=== PATIENT | female | born 1950 | race Caucasian/White ===

== ENCOUNTER 2021-03-01 15:35 | Outpatient (REF) | payer MEDICARE, SELFPAY ==
--- NOTE | ~2021-03-01 | MM_ITS ---
EXAMINATION: MM SCREENING DIGITAL BREAST TOMOSYNTHESIS, BILATERAL CLINICAL INFORMATION: Screening. Asymptomatic. The lifetime risk of breast cancer based on the Tyrer-Cuzick Model is 5%. COMPARISON: Mammography: 12/03/2019, 07/20/2018, 06/19/2017 TECHNIQUE: Digital breast tomosynthesis is performed in both the craniocaudal and mediolateral oblique views along with computer-aided detection (CAD). Synthesized 2D images are generated from the tomosynthesis. Additional right MLO view is provided. FINDINGS: There are scattered areas of fibroglandular density (ACR BI-RADS breast composition Category b). There are no significant masses, abnormal calcifications, or other abnormalities. Again, there are scattered bilateral vascular and ductal secretory and some rim calcifications. Small dermal lesion overlies posterior left axilla. There are no significant changes. MM/MM tomosynthesis screening BI IMPRESSION: No mammographic evidence of malignancy. ASSESSMENT: BI-RADS 2: Benign RECOMMENDATION: Routine annual mammography screening. This patient's information was entered into a reminder system with a target due date for their next mammogram.
== END 2021-03-01 15:36 | disposition home or self-care (01) ==
LOC: HO.MAMMO 15:35
PROVIDERS: PCP Internal Medicine; Visit Provider Internal Medicine
DX: Z12.31 Encounter for screening mammogram for malignant neoplasm of breast (principal)
CPT/HCPCS: 77063; 77067

== ENCOUNTER 2021-04-19 13:57 | Outpatient (REF) | payer MEDICARE, SELFPAY ==
--- NOTE | ~2021-04-19 | MM_ITS ---
EXAMINATION: BONE DENSITOMETRY CLINICAL INDICATION: Encounter for screening for osteoporosis. COMPARISON: Previous BD dated 05/25/2015 and baseline BD dated 06/04/2012. TECHNIQUE: Using a [employer] DXA System (software version: 13.1) manufactured by [employer], dual-energy x-ray absorptiometry was performed of the lumbar spine and left hip. The images are of good technical quality. Summary results are attached. FINDINGS: AP SPINE L1-L2 (excluding L3 and L4): The data of L1-L4 has been changed to exclude the L3 and L4 vertebral bodies, because degenerative changes at these levels may cause overestimation of lumbar spine density. Current: BMD 1.033 g/cm2, Z-score -0.6, T-score -1.1, osteopenia, 7.7% increase from previous, 10.2% increase from baseline (<5% change is not significant). Prior: BMD 0.959 g/cm2. Baseline: BMD 0.937 g/cm2. LEFT FEMUR, NECK: Current: BMD 0.854 g/cm2, Z-score -0.3, T-score -1.3, osteopenia. Prior: BMD 0.817 g/cm2. Baseline: BMD 0.768 g/cm2. LEFT FEMUR, TOTAL: Current: BMD 0.885 g/cm2, Z-score -0.2, T-score -1.0, normal, 5.4% increase from previous, 12.6% increase from baseline (<5% change is not significant). Prior: BMD 0.840 g/cm2. Baseline: BMD 0.786 g/cm2. IDENTIFIED RISK FACTORS: Height loss, menopause, hysterectomy, bilateral oophorectomy. HISTORY OF FRACTURE: None listed. MEDICATIONS: Calcium supplements or multivitamin, vitamin D. MM/XR DEXA axial skeleton IMPRESSION: 1. DIAGNOSIS: Osteopenia based on the lowest T-score value of -1.3 in the femoral neck applying World Health Organization criteria. 2. 10-YEAR FRACTURE RISK PREDICTION, FRAX: Major osteoporotic fracture (clinical spine, forearm, hip or shoulder) 9.3%. Hip fracture 1.4%. 3. Treatment Recommendations: NOF guidelines recommend consideration for treatment in postmenopausal women and men age 50 and older presenting with the following: -A hip or vertebral (clinical or morphometric) fracture. -T-score less than or equal to -2.5 at the femoral neck or spine after appropriate evaluation to exclude secondary causes. -Low bone mass at the hip or spine and a 10-year fracture probability by FRAX of greater than or equal to 3% for hip fracture or greater than or equal to 20% for major osteoporotic fracture based on the [place] adapted WHO algorithm. 4. Other Recommendations: All treatment decisions require clinical judgment and consideration of individual patient factors, including patient preferences, comorbidities, previous drug use, risk factors not captured in the FRAX model (e.g. frailty, falls, vitamin D deficiency, increased bone turnover, interval significant decline in bone density) and possible under or overestimation of fracture risk by FRAX. Additional medical evaluation for secondary cause of low bone mineral density may be appropriate. FUTURE SCAN RECOMMENDATION: People with diagnosed cases of osteoporosis or at high risk for fracture should have regular bone mineral density tests. For patients eligible for Medicare, routine testing is allowed once every 2 years. The testing frequency can be increased to one year for patients who have rapidly progressing disease, those who are receiving or discontinuing medical therapy to restore bone mass, or have additional risk factors.
== END 2021-04-19 13:58 | disposition home or self-care (01) ==
LOC: HO.MAMMO 13:57
PROVIDERS: Visit Provider Internal Medicine
DX: Z13.820 Encounter for screening for osteoporosis (principal); Z78.0 Asymptomatic menopausal state; Z90.710 Acquired absence of both cervix and uterus; Z90.722 Acquired absence of ovaries, bilateral
CPT/HCPCS: 77080

== ENCOUNTER 2022-03-11 11:07 | Outpatient (REF) | payer MEDICARE, SELFPAY ==
--- NOTE | ~2022-03-11 | MM_ITS ---
EXAMINATION: MM SCREENING DIGITAL BREAST TOMOSYNTHESIS, BILATERAL CLINICAL INFORMATION: Screening. Asymptomatic. The lifetime risk of breast cancer based on the Tyrer-Cuzick Model is 3.9%. COMPARISON: Mammography: March 01, 2021 and studies dating back to April 28, 2014 TECHNIQUE: Digital breast tomosynthesis is performed in both the craniocaudal and mediolateral oblique views along with computer-aided detection (CAD). Synthesized 2D images are generated from the tomosynthesis. FINDINGS: The breasts are heterogeneously dense, which may obscure small masses (ACR BI-RADS breast composition Category c). There are no significant masses, abnormal calcifications, or other abnormalities. MM/MM tomosynthesis screening BI IMPRESSION: No significant changes ASSESSMENT: BI-RADS 1: Negative RECOMMENDATION: Routine annual mammography screening. This patient's information was entered into a reminder system with a target due date for their next mammogram.
== END 2022-03-11 11:08 | disposition home or self-care (01) ==
LOC: HO.MAMMO 11:07
PROVIDERS: PCP Internal Medicine; Visit Provider Internal Medicine
DX: Z12.31 Encounter for screening mammogram for malignant neoplasm of breast (principal)
CPT/HCPCS: 77063; 77067

== ENCOUNTER 2023-03-21 10:47 | Outpatient (REF) | payer MEDICARE, SELFPAY ==
--- NOTE | ~2023-03-21 | MM_ITS ---
EXAMINATION: MM SCREENING DIGITAL BREAST TOMOSYNTHESIS, BILATERAL CLINICAL INFORMATION: Screening. Asymptomatic. COMPARISON: Mammography: This study is compared with prior exams dating back to 2017. TECHNIQUE: Digital breast tomosynthesis is performed in both the craniocaudal and mediolateral oblique views along with computer-aided detection (CAD). Synthesized 2D images are generated from the tomosynthesis. FINDINGS: There are scattered areas of fibroglandular density (ACR BI-RADS breast composition Category b). There are no significant masses, abnormal calcifications, or other abnormalities. There are bilateral, benign secretory calcifications in each breast. MM/MM tomosynthesis screening BI IMPRESSION: No mammographic evidence of malignancy. ASSESSMENT: BI-RADS BI-RADS 2 - Benign Findings RECOMMENDATION: Routine annual mammography screening. 1 year F/U This examination should not preclude the clinical evaluation of a suspicious palpable abnormality. This patient's information was entered into a reminder system with a target due date for their next mammogram.
== END 2023-03-21 10:48 | disposition home or self-care (01) ==
LOC: HO.MAMMO 10:47
PROVIDERS: PCP Internal Medicine; Visit Provider Internal Medicine
DX: Z12.31 Encounter for screening mammogram for malignant neoplasm of breast (principal)
CPT/HCPCS: 77063; 77067

== ENCOUNTER → 2023-03-21 11:00 | Outpatient (BNV) | payer MEDICARE, SELFPAY | PROVIDERS: PCP Internal Medicine; Visit Provider Radiology Diagnostic Radiology | DX: Z12.31 Encounter for screening mammogram for malignant neoplasm of breast (principal) | CPT/HCPCS: 77063; 77067 ==

== ENCOUNTER 2023-07-31 10:56 | Outpatient (REF) | payer MEDICARE, SELFPAY ==
--- NOTE | ~2023-07-31 | MM_ITS ---
EXAMINATION: BONE DENSITOMETRY CLINICAL INDICATION: Menopausal disorder. COMPARISON: Previous BD dated 04/19/2021 and baseline BD dated 06/04/2012. TECHNIQUE: Using a [employer] DXA System (software version: 13.1) manufactured by [employer], dual-energy x-ray absorptiometry was performed of the lumbar spine and left hip. The images are of good technical quality. Summary results are attached. FINDINGS: LEFT FEMUR, NECK: Current: BMD 0.836 g/cm2, Z-score 0.0, T-score -1.5, osteopenia. Prior: BMD 0.854 g/cm2. Baseline: BMD 0.768 g/cm2. LEFT FEMUR, TOTAL: Current: BMD 0.852 g/cm2, Z-score 0.0, T-score -1.2, osteopenia, 3.7% decrease from previous, 8.4% increase from baseline (<5% change is not significant). Prior: BMD 0.885 g/cm2. Baseline: BMD 0.786 g/cm2. AP SPINE L1-L2 (excluding L3 and L4): The data of L1-L4 has been changed to exclude the L3 and L4 vertebral bodies, because degenerative sclerosis at these levels may cause overestimation of lumbar spine density. Current: BMD 0.947 g/cm2, Z-score -0.7, T-score -1.8, osteopenia, 8.3% decrease from previous, 1.1% increase from baseline (<5% change is not significant). Prior: BMD 1.033 g/cm2. Baseline: BMD 0.937 g/cm2. IDENTIFIED RISK FACTORS: Menopause, hysterectomy, bilateral oophorectomy, height loss. HISTORY OF FRACTURE: None listed. MEDICATIONS: Calcium supplements or multivitamin, vitamin D. MM/XR DEXA axial skeleton IMPRESSION: 1. DIAGNOSIS: Osteopenia based on the lowest T-score value of -1.8 in the lumbar spine applying World Health Organization criteria. 2. 10-YEAR FRACTURE RISK PREDICTION, FRAX: Major osteoporotic fracture (clinical spine, forearm, hip or shoulder) 10.7%. Hip fracture 2.1%. 3. Treatment Recommendations: NOF guidelines recommend consideration for treatment in postmenopausal women and men age 50 and older presenting with the following: -A hip or vertebral (clinical or morphometric) fracture. -T-score less than or equal to -2.5 at the femoral neck or spine after appropriate evaluation to exclude secondary causes. -Low bone mass at the hip or spine and a 10-year fracture probability by FRAX of greater than or equal to 3% for hip fracture or greater than or equal to 20% for major osteoporotic fracture based on the [place] adapted WHO algorithm. 4. Other Recommendations: All treatment decisions require clinical judgment and consideration of individual patient factors, including patient preferences, comorbidities, previous drug use, risk factors not captured in the FRAX model (e.g. frailty, falls, vitamin D deficiency, increased bone turnover, interval significant decline in bone density) and possible under or overestimation of fracture risk by FRAX. Additional medical evaluation for secondary cause of low bone mineral density may be appropriate. FUTURE SCAN RECOMMENDATION: People with diagnosed cases of osteoporosis or at high risk for fracture should have regular bone mineral density tests. For patients eligible for Medicare, routine testing is allowed once every 2 years. The testing frequency can be increased to one year for patients who have rapidly progressing disease, those who are receiving or discontinuing medical therapy to restore bone mass, or have additional risk factors.
== END 2023-07-31 10:57 | disposition home or self-care (01) ==
LOC: HO.MAMMO 10:56
PROVIDERS: PCP Internal Medicine; Visit Provider Internal Medicine
DX: Z13.820 Encounter for screening for osteoporosis (principal); Z78.0 Asymptomatic menopausal state
CPT/HCPCS: 77080

== ENCOUNTER 2023-11-10 15:12 | Emergency (ER) | payer MEDICARE, SELFPAY ==
--- NOTE | 2023-11-10 15:29 | ED.GENADULT ---
HPI - General Adult General Chief complaint: General Medical Stated complaint: swollen right knee, hands and toes tingling Time Seen by Provider: 11/10/23 18:01 Source: patient Mode of arrival: ambulatory Limitations: no limitations History of Present Illness HPI narrative: 73-year-old female with a past medical history of varicose veins and osteoarthritis presents to the emergency department with complaints of a swollen right knee and pain in her lower extremities. She reports she recently took a job where she is on her feet more and walking several flights of stairs per day. She reports when she gets home from work she is very uncomfortable and that her pain improves with rest and that after a night's sleep pain is resolved. She states she has been taking dwah-waw-[id number] medicines with moderate relief in symptoms. She is being followed by her primary care provider with an ultrasound completed in July which was negative for DVT. She states she was told she would need a right total knee replacement but is ?trying to hold off ?. She denies any erythema, warmth, lymphangitis, fever, saddle anesthesias, urinary or fecal incontinence , chills Pertinent positives and negatives discussed in HPI Related Data Previous Rx's ?Medication ?Instructions ?Recorded diclofenac sodium 1 % topical gel 2 g topical QID #100 grams 11/10/23 (Aleve (diclofenac)) naproxen 250 mg tablet 250 mg PO BID #60 tabs 11/10/23 Allergies Allergy/AdvReac Type Severity Reaction Status Date / Time cats Allergy Unknown Unknown Uncoded 11/10/23 15:32 Review of Systems Review of Systems: Yes all other systems are reviewed and are negative PMFSH Social History Social History Advance Directives: No Advance Directives Information Provided: No Do you have a plan to hurt others: No Plan Physical Exam ED Vital Signs: Vital Signs - 24 hr 11/10/23 15:30 11/10/23 18:07 11/10/23 18:42 Temperature 97.8 F 97.9 F 97.9 F Pulse Rate 69 70 70 Respiratory Rate 18 18 20 Blood Pressure 138/63 136/66 136/66 Pulse Oximetry 96 97 97 Oxygen Delivery Method Room Air Room Air Room Air BMI result Body Mass Index 30.7 Nursing notes and vital signs reviewed. GENERAL APPEARANCE: A&0 x 4, generally well appearing, no acute distress HENMT: Normal to inspection, atraumatic, face symmetrical. Normal external ears, nose, and oropharynx clear. EYE: PERRLA, EOM intact, structures appear normal NECK: Supple without stiffness or restricted ROM. HEART: Normal rate and regular rhythm, normal S1/S2, no M/R/G LUNGS: LS CTA, moving air well. Able to speak in complete sentences. No crackles, wheezes, or rhonchi auscultated BACK: No CVAT, no obvious deformity EXTREMITIES: Moving all extremities without difficulty. Swelling right knee. Normal capillary refill. NEUROLOGICAL: Alert and oriented, moving all 4 extremities with equal strength. CN not formally tested but appearing grossly intact. Observed to ambulate with normal gait. Cognition normal SKIN: Warm and dry without any lesions, rash, or visible sores Course Course Course Narrative: This is a Rapid Medical Exam performed in triage by Gunjan Lopez PA-C. Full HPI, ROS and PE to be performed by primary ED provider. 73 year-old F w/no sig PMHx presenting to the ED c/o toe numbness, swelling in B/L legs and R knee, joint pain x all year PE: ambulating w/steady gait, b/l LE with 1+ edema, NV intact Plan: labs, US ordered Medical Decision Making Medical Decision Making MDM Narrative: Old records reviewed for previous imaging, lab studies, ECGs, and notes. Patient was assessed the emergency department with no acute distress or toxicity noted. Blood work and ultrasound ordered and declined by patient. Patient's symptoms are consistent muscle strain with a low suspicion for infection. Patient educated to use an Jatin wrap on the right knee for compression and stability. Prescription for diclofenac ointment and naproxen sent to patient's preferred pharmacy for further management of pain. Patient educated to continue use of compression stockings and follow-up with the vascular specialist. Patient is safe for discharge at this time with plan for [id number] Tylenol and/or NSAID such as ibuprofen or naproxen for fever/discomfort with dosing as per packaging. HPI, PE, diagnostics, and plan discussed with patient and family with no unanswered questions at this time. Strict return precautions given to return to the emergency department with new, worsening, or concerning emergent symptoms. Recommended to follow-up with there primary care provider in 24-48 hours for further treatment and management. Differential Diagnosis Differential Diagnoses: The differential diagnosis associated with the presentation includes But not limited to fracture, dislocation, strain, sprain, contusion, effusion, septic joint, DVT, sepsis, malignancy Discharge Plan Discharge Clinical Impression: Acute pain of right knee Patient Disposition: Home, Self-Care Instructions: Acetaminophen (By mouth), Naproxen (By mouth), Arthralgia (ED), R.I.C.E. Treatment (ED), Heat Pack Application (ED) Additional Instructions: Your seen in the emergency department for concerns of chronic swelling in the right knee. It was recommended that you rest, compress, and elevate your knee for comfort. Applying heat to the knee may aid in comfort. Application of heat should be 20 minutes seems on and then 20 minutes off to avoid skin burn. Naproxen and an NSAID ointment called diclofenac essentially preferred pharmacy for further management. Please follow-up with your primary care provider in addition to your vascular specialist You are safe for discharge at this time with plan for management of fever or discomfort with [id number]-uxtpplo Tylenol and/or naproxen with dosing as per packaging. Please return to the emergency department with new, worsening, or concerning emergent symptoms. Recommended to follow-up with your primary care provider in 24-48 hours for further treatment and management. Thank you for choosing [facility]. Prescriptions: New diclofenac sodium [Aleve (diclofenac)] 1 % gel 2 g topical QID Qty: 100 0RF Rx Instructions: apply to single elbow, wrist or hand; for hand includes palm/fingers/back of hand naproxen 250 mg tablet 250 mg PO BID Qty: 60 0RF Referrals: [facility] [place] Family Medicine [Provider Group] [facility] [Provider Group] [facility] [place] [facility] [[facility]] Marielena Cano MD [Primary Care Provider] - Interventions: ED Discharge Assessment Last Done: 11/10/23 18:42 Discharge Date/Time: 11/10/23 18:46 Print Language: Sami
[2023-11-10 15:30] VITALS: BP 138/63; PULSE 69; RESP 18; TEMP 36.6; O2SAT 96; BMI 30.7
[2023-11-10 18:07] VITALS: BP 136/66; PULSE 70; RESP 18; TEMP 36.6; O2SAT 97
[2023-11-10 18:42] VITALS: BP 136/66; PULSE 70; RESP 20; TEMP 36.6; O2SAT 97
== END 2023-11-10 18:46 | disposition home or self-care (01) ==
PROVIDERS: Emergency Provider Emergency Medicine; PCP Internal Medicine
DX: M25.561 Pain in right knee (principal); R60.0 Localized edema
CPT/HCPCS: 99283

== ENCOUNTER 2023-11-15 22:38 | Emergency (ER) | payer MEDICARE, SELFPAY ==
--- NOTE | 2023-11-15 | ECG_ITS ---
Test Reason : CHEST PAIN Blood Pressure : / mmHG Vent. Rate : 063 BPM Atrial Rate : 063 BPM P-R Int : 158 ms QRS Dur : 096 ms QT Int : 412 ms P-R-T Axes : 056 040 021 degrees QTc Int : 421 ms Normal sinus rhythm Normal ECG When compared with ECG of 15-JUL-2019 09:44, No significant change was found Referred By: Generic ED Physician Electronically Signed By:RAHAT MANUEL MD
--- NOTE | ~2023-11-15 | XR_ITS ---
EXAMINATION: XR CHEST CLINICAL INFORMATION: Chest pain. COMPARISON: Chest x-ray July 15, 2019 TECHNIQUE: Frontal portable view of the chest was obtained. 11:11 PM FINDINGS: Lungs are clear. No pulmonary vascular congestion. There is no pleural effusion. The heart size is normal. The cardiac and mediastinal contours are normal. There are multilevel degenerative changes of dorsal spine. XR/XR chest 1V IMPRESSION: Unremarkable examination.
[2023-11-15 22:52] VITALS: BP 160/86; PULSE 67; O2SAT 98
[2023-11-15 23:03] VITALS: BP 176/75; PULSE 62; RESP 16; TEMP 36.6; O2SAT 97; BMI 31.0
--- NOTE | 2023-11-15 23:10 | MHC.EDTECH ---
Patient BIBA,changed into hospital attire,placed on the vehicle monitor technician ,vitals taken and EKG taken per order and signed by provider,call arellano in reach
--- NOTE | 2023-11-15 23:26 | MHC.EDTECH ---
Labs obtained and sent to lab
[2023-11-15 23:30] LABS: MANUAL DIFF FLAG NO
[2023-11-15 23:31] LABS: Basophils Percent Auto 0.5 % (0-2); Eosinophils Absolute Auto 0.1 X10*3/uL (0.0-0.4); Eosinophils Percent Auto 1.7 % (0-4); Hematocrit 36.6 % (37.0-47.0); Hemoglobin 12.7 g/dl (12.0-16.0); Imm Gran Abs Auto 0.02 X10*3/uL (0.00-0.03); Imm Gran Pct Auto 0.2 % (0.0-0.4); Lymphocytes Absolute Auto 1.7 X10*3/uL (1.2-4.9); Mean Corpuscular HGB Conc 34.7 g/dl (31.0-35.0); Mean Corpuscular Hemoglobin 33.1 pg (27.0-33.0); Mean Corpuscular Volume 95.3 fL (80.0-98.0); Mean Platelet Volume 10.5 fL (9.4-12.3); Monocytes Absolute Auto 0.6 X10*3/uL (0.1-1.2); Neutrophils Absolute Auto 5.9 x10*3/uL (2.0-8.3); Neutrophils Percent Auto 70.6 % (45-73); Platelet Count 247 X10*3/uL (160-400); Red Blood Count 3.84 X10*6/uL (4.20-5.50); Red Cell Distribution Width 12.8 % (11.0-16.0); White Blood Count 8.4 X10*3/uL (4.8-10.8)
[2023-11-15 23:39] VITALS: BP 156/76; PULSE 70; RESP 18; O2SAT 96
--- NOTE | 2023-11-15 23:40 | MHC.EDTECH ---
Patient ambulated to the bathroom with a steady gait.
[2023-11-15 23:46] LABS: Alanine Aminotransferase 20 U/L (0-31); Albumin Level 4.2 g/dL (3.5-5.0); Alkaline Phosphatase 63 U/L (39-117); Anion Gap 16 (12-20); Aspartate Amino Transferase 34 U/L (5-31); Bilirubin Total 0.3 mg/dL (0.0-1.0); Blood Urea Nitrogen 21 mg/dL (9-16); Calcium 9.7 mg/dL (8.4-10.2); Carbon Dioxide 25 mmol/L (22-29); Chloride 105 mmol/L (96-108); Creatinine Clr Calc Pharmacy 71.5; Estimated Glomerular Filt Rate > 60; Glucose Random 91 mg/dL (60-115); Potassium 4.3 mmol/L (3.3-5.1); Sodium 142 mmol/L (135-145)
[2023-11-15 23:52] LABS: B Type Natriuretic Peptide 42 pg/mL (<100)
--- NOTE | 2023-11-15 23:52 | ED_ITS ---
HPI - General Adult General Chief complaint: General Medical Stated complaint: sharp chest pain x10 mins, ROSARIO x3 Time Seen by Provider: 11/15/23 23:20 Source: patient Mode of arrival: ambulatory Limitations: no limitations History of Present Illness ED Provider: gracie HPI narrative: Patient's history of varicose veins, knee arthritis was seen here on 11/09 for pain comes here again with multiple complaints including right leg pain and chest pain in body a for last several days patient had left knee replacement for arthritis and supposed to get right knee also in future also had right hip replacement patient no recent fall patient had Doppler done last week which was negative Related Data Previous Rx's ?Medication ?Instructions ?Recorded diclofenac sodium 1 % topical gel 2 g topical QID #100 grams 11/10/23 (Aleve (diclofenac)) naproxen 250 mg tablet 250 mg PO BID #60 tabs 11/10/23 tramadol 50 mg tablet 50 mg PO Q6H PRN pain #20 tabs 11/16/23 Allergies Allergy/AdvReac Type Severity Reaction Status Date / Time cats Allergy Unknown Unknown Uncoded 11/15/23 23:04 Review of Systems 2 Review of Systems: Yes all other systems are reviewed and are negative [facility] Social History Social History Smoked in Last 30 Days: No Use of substances other than those prescribed or required for medical reasons: No Advance Directives: No Advance Directives Information Provided: No Physical Exam ED Vital Signs: Vital Signs - 24 hr 11/15/23 23:03 11/15/23 23:39 11/16/23 00:52 Temperature 97.9 F 97.6 F Pulse Rate 62 70 72 Respiratory Rate 16 18 18 Blood Pressure 176/75 H 156/76 H 166/75 H Pulse Oximetry 97 96 96 Oxygen Delivery Method Room Air Room Air Room Air BMI result Body Mass Index 31.0 Appearance: Alert. Oriented X3. No acute distress. Anxious Eyes: No pallor ENT: Pharynx normal. Oral Mucosa moist Neck: Normal inspection. Neck supple. CVS: Normal heart rate and rhythm. Pulses normal. Respiratory: No respiratory distress. Equal air entry bilateral, no wheezing/rales/rhonchi Abdomen: Soft and nontender. Bowel sounds are present, no mass palpable, no CVA tenderness Skin: Skin warm and dry. Normal skin color. Normal skin turgor. Extremities: No lower extremity edema. No calf tenderness varicose vein bilateral right knee diffuse swelling mild effusion good range of movement diffuse tenderness Neuro: Oriented X 3. No motor deficit. N Medications Administered Discontinued Medications Generic Name Dose Route Start Last Admin Trade Name Freq PRN Reason Stop Dose Admin Sodium Chloride 1,000 mls @ 999 mls/hr 11/16/23 01:30 11/16/23 01:34 Ns IV 11/16/23 02:30 999 mls/hr .Q1H1M ONE Administration Ondansetron HCl 4 mg 11/16/23 01:14 11/16/23 01:17 Ondansetron Odt 4 Mg Tab.Rapdis TRANSLINGU 11/16/23 01:15 4 mg ONCE ONE Administration Ondansetron HCl 4 mg 11/16/23 01:30 11/16/23 01:34 Ondansetron Hcl 4 Mg/2 Ml Vial IVPUSH 11/16/23 01:31 4 mg ONCE ONE Administration Tramadol HCl 50 mg 11/16/23 00:37 11/16/23 00:53 Tramadol Hcl 50 Mg Tablet PO 11/16/23 00:38 50 mg ONCE ONE Administration Medical Decision Making Medical Decision Making [facility] Narrative: Patient has osteoarthritis of the knee patient comes here with multiple complaints overwhelmed with the problems workup is negative patient advised to take pain medication follow-up with vascular and orthopedics Differential Diagnosis Differential Diagnoses: The differential diagnosis associated with the presentation includes Lab Data [facility] Lab Attestation statement: I reviewed the patient's lab results. 11/15/23 23:25 11/15/23 23:25 Labs: Lab Results 11/15/23 11/15/23 Range/Units 23:25 23:49 WBC 8.4 (4.8-10.8) X10*3/uL RBC 3.84 L (4.20-5.50) X10*6/uL Hgb 12.7 (12.0-16.0) g/dl Hct 36.6 L (37.0-47.0) % MCV 95.3 (80.0-98.0) fL MCH 33.1 H (27.0-33.0) pg MCHC 34.7 (31.0-35.0) g/dl RDW 12.8 (11.0-16.0) % Plt Count 247 (160-400) X10*3/uL MPV 10.5 (9.4-12.3) fL Immature Gran % (Auto) 0.2 (0.0-0.4) % Neut % (Auto) 70.6 (45-73) % Lymph % (Auto) 20.0 (20-40) % [place] % (Auto) 7.0 (2-11) % Eos % (Auto) 1.7 (0-4) % Baso % (Auto) 0.5 (0-2) % Lymph # (Auto) 1.7 (1.2-4.9) X10*3/uL [place] # (Auto) 0.6 (0.1-1.2) X10*3/uL Eos # (Auto) 0.1 (0.0-0.4) X10*3/uL Baso # (Auto) 0.0 (0.0-0.2) X10*3/uL Abs Immat Gran (auto) 0.02 (0.00-0.03) X10*3/uL Absolute Neuts (auto) 5.9 (2.0-8.3) x10*3/uL Absolute Nucleated RBC 0.000 (0.0-0.012) X10*3/uL Nucleated RBC % (auto) 0.0 (0.0-0.2) /100WBC PT 12.0 (11.1-13.3) SEC INR 1.0 (0.9-1.1) Sodium 142 (135-145) mmol/L Potassium 4.3 (3.3-5.1) mmol/L Chloride 105 (96-108) mmol/L Carbon Dioxide 25 (22-29) mmol/L Anion Gap 16 (12-20) BUN 21 H (9-16) mg/dL Creatinine 0.73 (0.5-1.4) mg/dL Estim Creat Clear Calc 71.5 Estimated GFR > 60 Random Glucose 91 (60-115) mg/dL Calcium 9.7 (8.4-10.2) mg/dL Total Bilirubin 0.3 (0.0-1.0) mg/dL AST 34 H (5-31) U/L ALT 20 (0-31) U/L Alkaline Phosphatase 63 (39-117) U/L Troponin I High Sens < 2.7 (<3.5-17.0) ng/L B-Natriuretic Peptide 42 (<100) pg/mL Total Protein 7.0 (6.5-8.0) g/dL Albumin 4.2 (3.5-5.0) g/dL Urine Color Yellow Urine Appearance Clear Urine pH 7.0 (5.0-9.0) Ur Specific [place] 1.010 (1.005-1.025) Urine Protein Negative (Neg-Trace) mg/dL Urine Glucose (UA) Negative (Negative) mg/dL Urine Ketones Negative (Negative) mg/dL Urine Blood Negative (Negative) Urine Nitrite Negative (Negative) Ur Leukocyte Esterase Moderate (2+) H (Negative) Urine RBC 0-2 (0-2) /HPF Urine WBC 0-5 (0-5) /HPF Ur Squamous Epith Cells 0-2 (0-2) /HPF Urine Bacteria None Seen (None Seen) Hyaline Casts 0-2 (0-2) /LPF Independent Interpretation I performed an independent interpretation of an: EKG Interpretation: Normal sinus rhythm heart rate 80 63 beats per minute normal interval normal axis no acute ST T wave changes Discharge Plan Discharge Clinical Impression: Chest pain, Knee pain, right, Varicose vein of leg Patient Disposition: Home, Self-Care Instructions: Chest Pain (ED), Knee Pain (ED), Venous Insufficiency (DC) Additional Instructions: Take pain medication as prescribed Follow up with vascular for varicose veins and orthopedics for right knee arthritis Follow with your PCP chest likely atypical non cardiac Prescriptions: New tramadol 50 mg tablet 50 mg PO Q6H PRN (Reason: pain) Qty: 20 0RF No Action diclofenac sodium [Aleve (diclofenac)] 1 % gel 2 g topical QID Qty: 100 0RF Rx Instructions: apply to single elbow, wrist or hand; for hand includes palm/fingers/back of hand naproxen 250 mg tablet 250 mg PO BID Qty: 60 0RF Print Language: [place]
[2023-11-15 23:59] LABS: Troponin-I High Sensitivity < 2.7 ng/L (<3.5-17.0)
[2023-11-16 00:04] LABS: Appearance Urine Clear; Color Urine Yellow; Glucose Urine UA Negative (Negative); Leukocyte Esterase Urine Moderate (2+) (Negative); Nitrite Urine Negative (Negative); UMIC TRIGGER UACC YES; Urine Blood Negative (Negative); Urine Ketones Negative (Negative); Urine Protein Negative (Neg-Trace)
[2023-11-16 00:14] LABS: Bacteria Urine None Seen (None Seen); Hyaline Casts Urine 0-2 /LPF (0-2); RBC Urine 0-2 /HPF (0-2); Squamous Epithelial Cell Urine 0-2 /HPF (0-2); WBC Urine 0-5 /HPF (0-5)
[2023-11-16 00:52] VITALS: BP 166/75; PULSE 72; RESP 18; TEMP 36.4; O2SAT 96
[2023-11-16] MEDS: traMADoL HCL 50 MG TABLET PO (00:53)
[2023-11-16] MEDS: Ondansetron ODT 4 MG TAB.RAPDIS TRANSLINGU (01:17)
[2023-11-16] MEDS: ondansetron HCL 4 MG/2 ML VIAL IVPUSH (01:34)
[2023-11-16] MEDS: 0.9 % Sodium Chloride 1,000 ML 999 ML IV (01:34)
[2023-11-16 05:57] VITALS: BP 117/63; PULSE 70; RESP 18; TEMP 36.4; O2SAT 95
[2023-11-16 06:05] VITALS: BP 117/63; PULSE 70; RESP 18; TEMP 36.4; O2SAT 95
== END 2023-11-16 06:18 | disposition home or self-care (01) ==
PROVIDERS: Physician Assistant; Emergency Provider Internal Medicine; PCP Internal Medicine
DX: R07.89 Other chest pain (principal); M25.561 Pain in right knee; R06.02 Shortness of breath; Z79.899 Other long term (current) drug therapy
CPT/HCPCS: 36415; 71045; 80053; 81001; 83880; 84484; 85025; 85610; 93005; 96365; 96375; 99284; 99285; J2405

== ENCOUNTER → 2023-11-15 22:50 | Outpatient (BNV) | payer MEDICARE, SELFPAY | PROVIDERS: Emergency Provider Internal Medicine; PCP Internal Medicine; Visit Provider Internal Medicine Cardiovascular Disease | DX: R07.9 Chest pain, unspecified (principal) | CPT/HCPCS: 93010 ==

== ENCOUNTER 2023-11-16 09:42 | Observation (INO) | payer MEDICARE, SELFPAY ==
--- NOTE | ~2023-11-16 | NM_ITS ---
EXAMINATION: NM BILIARY TRACT CLINICAL INFORMATION: Right upper quadrant pain. COMPARISON: None available. TECHNIQUE: 5 mCi of 90 9M technetium mebrofenin was injected and imaging over the right upper quadrant was obtained up to 1 hour. 1.7 mcg of CCK was injected and imaging was obtained for next 30 minutes. FINDINGS: There is normal hepatic uptake without focal defect. There is prompt visualization of CBD by 10 minutes and gallbladder by 24 minutes. Small bowel is visualized by 12 minutes. Post-CCK the gallbladder ejection fraction is 15% at 29 minutes. NM/NM hepatobiliary w pharm IMPRESSION: Abnormal gallbladder ejection fraction of 15% at 29 minutes. Patent cystic duct, patent CBD and normal hepatic uptake.
--- NOTE | ~2023-11-16 | CT_ITS ---
EXAMINATION: CT ABDOMEN AND PELVIS WITHOUT CONTRAST CLINICAL INFORMATION: Transaminitis with nausea and vomiting COMPARISON: Ultrasound abdomen 11/16/2023, CT abdomen pelvis 07/25/2019 TECHNIQUE: Multidetector volumetric imaging was performed from the superior aspect of the liver through the pubic symphysis. Sagittal and coronal reformatted images were obtained on the technologist's workstation. This CT examination was performed using dose optimization techniques as appropriate, variously including the following: *Automated exposure control *Adjustment of mA and/or kV according to patient size (this includes techniques or standardized protocols for targeted exams where dose is matched to indication/reason for exam; i.e. extremities or head) *Use of iterative reconstruction technique DLP: 508 mGy-cm FINDINGS: LUNG BASES: Some minimal emphysematous changes are seen along with some mild traction bronchiectasis. Bibasilar scarring is present. LIVER, GALLBLADDER, AND BILIARY TREE: The liver is normal in size, shape, and attenuation. No focal hepatic lesion or biliary ductal dilatation is present. The gallbladder is unremarkable with no evidence of radiopaque gallstones, gallbladder wall thickening, or obvious pericholecystic inflammatory changes. PANCREAS: Unremarkable. SPLEEN: Unremarkable. Small splenule is seen. ADRENAL GLANDS: There is a small subcentimeter nodular density seen in the region of the right adrenal gland measuring fat density which is not a worrisome finding and needs no follow-up. Adrenal glands are otherwise unremarkable. KIDNEYS AND URETERS: The kidneys are normal in size, shape, and attenuation. No hydronephrosis, hydroureter, or calculi seen. No perinephric stranding. Multiple benign left-sided parapelvic Bosniak class I renal cysts are noted a which require no additional imaging or follow-up. No solid renal masses are seen. BLADDER: Unremarkable. GASTROINTESTINAL TRACT: The small and large bowel are unremarkable. The appendix is unremarkable. ABDOMINAL WALL: No significant hernia is appreciated. LYMPH NODES: Normal. VASCULAR: Unremarkable. PELVIC VISCERA: The uterus is not seen. An abnormal adnexal mass is not detected. No free intraperitoneal fluid is present. There is an ovoid 2 cm calcification in the left lower quadrant that could represent an old calcified avulsed epiploic appendage, new from 2010. This is not a worrisome finding. OSSEOUS STRUCTURES: There is a biconvex thoracolumbar scoliosis seen with degenerative changes in the spine. There is a right total hip prosthesis. No bony destructive lesions. CT/CT abdomen pelvis wo IV con IMPRESSION: 1. A cause for the patient's transaminitis and nausea and vomiting has not been found. 2. Incidental note made of mild emphysematous changes in the lung bases, benign left renal cysts which need no further imaging or follow-up, hysterectomy and degenerative changes in the spine with right total hip prosthesis. Fleischner guidelines were followed.
--- NOTE | ~2023-11-16 | US_ITS ---
EXAMINATION: US ABDOMEN LIMITED liver and gallbladder only CLINICAL INFORMATION: Nausea vomiting. COMPARISON: None available. TECHNIQUE: Real-time imaging of the right upper quadrant abdominal viscera. FINDINGS: LIVER: Normal. The liver is normal in size. The liver contour is normal. Parenchymal echogenicity is normal. No focal hepatic lesion. There is no intrahepatic biliary duct dilatation seen. GALLBLADDER: There is echogenic material in the gallbladder probably gallbladder sludge. The gallbladder is physiologically distended without evidence of stones, polyps, wall thickening or pericholecystic fluid. COMMON BILE DUCT: Normal in caliber measuring 0.2 cm in diameter. FREE FLUID: None. US/US abdomen limited IMPRESSION: * Echogenic material in the gallbladder probably gallbladder sludge. * No ultrasound evidence of cholecystitis.
--- NOTE | ~2023-11-16 | XR_ITS ---
EXAMINATION: XR KNEE, RIGHT CLINICAL INFORMATION: Right knee pain COMPARISON: None available. TECHNIQUE: AP and lateral views of the right knee. FINDINGS: Joint space narrowing and osteophyte formation is seen within the femoral-tibial joint and patellofemoral joint consistent with moderate to severe osteoarthritis. Osseous structures are otherwise intact. No significant joint effusion. Generalized subcutaneous edema seen XR/XR knee RT 2V IMPRESSION: Moderate to severe osteoarthritis. Generalized soft tissue edema. No significant joint effusion
[2023-11-16 09:48] VITALS: BP 132/83; PULSE 68; O2SAT 96
[2023-11-16 09:56] VITALS: BP 114/50; PULSE 66; RESP 18; TEMP 36.6; O2SAT 95; BMI 32.0
--- NOTE | 2023-11-16 10:47 | ED_ITS ---
HPI - General Adult General Chief complaint: General Medical Stated complaint: NAUSEA,SEEN RECENTLY PER EMS Time Seen by Provider: 11/16/23 10:21 Source: patient Mode of arrival: ambulatory Limitations: no limitations History of Present Illness ED Provider: DR. Cheema HPI narrative: 73-year-old female who presented today after having nausea and vomiting last night, patient also is complaining of progressive generalized joint pain patient with history of varicose vein and osteoarthritis, patient was seen and evaluated 3 times this week, apparently patient appear depressed and stressed out, patient is tearful in the ED during the interview, no SI, no HI, no hallucinations,Patient feels unsafe being home alone. Patient has no abdominal pain, no nausea, no vomiting now. Patient had previous workup in the emergency department which all unremarkable with a normal. Patient could not be placed to rehab because health insurance issue a new health insurance will start on 11/17 2023. Related Data Previous Rx's ?Medication ?Instructions ?Recorded diclofenac sodium 1 % topical gel 2 g topical QID #100 grams 11/10/23 (Aleve (diclofenac)) naproxen 250 mg tablet 250 mg PO BID #60 tabs 11/10/23 tramadol 50 mg tablet 50 mg PO Q6H PRN pain #20 tabs 11/16/23 Allergies Allergy/AdvReac Type Severity Reaction Status Date / Time cats Allergy Unknown Unknown Uncoded 11/16/23 09:58 Review of Systems 2 Review of Systems: all other systems are reviewed and are negative Constitutional: Reports as per HPI and Reports no additional constitutional complaints Eyes: Reports as per HPI and Reports no additional eye complaints Reports system reviewed and no additional complaints, except as documented Cardiovascular: Reports as per HPI and Reports no additional cardiovascular complaints Respiratory: Reports as per HPI and Reports no additional respiratory complaints Gastrointestinal: Reports as per HPI and Reports no additional gastrointestinal complaints Genitourinary: Reports no additional female genitourinary complaints Musculoskeletal: Reports no additional musculoskeletal complaints Skin/Breast: Reports system reviewed and no additional complaints, except as docu Psychiatric: Reports no additional psychiatric complaints Endocrine: Reports no additional endocrine complaints Hematologic/Lymphatic: Reports no additional hematologic/lymphatic complaints Allergic/Immunologic: Reports no additional allergic/immunologic complaints Reports system reviewed and no additional complaints, except as documented and Reports Abnormal speech present [facility] Social History Social History Advance Directives: No Advance Directives Information Provided: No Physical Exam ED Vital Signs: Vital Signs - 24 hr 11/16/23 09:56 11/16/23 15:35 Temperature 97.9 F Pulse Rate 66 59 Respiratory Rate 18 17 Blood Pressure 114/50 L 114/52 L Pulse Oximetry 95 95 Oxygen Delivery Method Room Air Room Air BMI result Body Mass Index 32.0 Vital signs have been reviewed and appear to be correct. Blood pressure elevated. Heart rate normal. Respiratory rate normal. Temperature normal. Oxygen saturation normal. Appearance: Alert. Oriented X3. No acute distress. Head: Normal external exam. Normocephalic. Atraumatic. No Mckeon signs noted. No raccoon eyes noted Eyes: PERRLA. EOMI. Conjunctiva and sclera normal. Eyelids normal. ENT: TM's Normal. Pharynx normal. Uvula midline. Moist mucous membranes. No trismus noted. No drooling noted. No muffled voice noted. Neck: Normal inspection. Neck supple. FROM. No adenopathy. Thyroid Normal. No meningeal signs. No neck mass noted. CVS: Normal heart rate and rhythm. Heart sound normal. No murmurs noted. Pulses normal throughout. Respiratory: No respiratory distress. Painless inspiration. Breath sounds normal. No wheezes/rales/rhonchi noted. Chest nontender. No accessory muscle usage noted or decreased air movement noted. Abdomen: Soft and nontender. Bowel sounds normal in all 4 quadrants. No distention noted. No organomegaly noted. No visible injury noted. Back: No CVA tenderness. Full range of motion noted. Skin: Skin warm and dry. Normal skin color. Normal skin turgor. No rashes/lesions/lacerations noted. Extremities: No lower extremity edema. Extremities exhibit normal range of motion. Extremities nontender. Neuro: Oriented X 3. Cranial nerve exam: II-XII are grossly intact No motor deficit. No sensory deficit. Reflexes normal. Patient Orientation: Person, Place, Time and Situation, okay hygiene and grooming. Fair eye contact, tearful, attentive, no tics or tremors. Level of Consciousness: Awake, Appropriate and Alert Patient Behavior: Appropriate, Guarded, Cooperative and Anxious Mood Description: Constricted, Blunted and Apprehensive Affect Description: Constricted, Blunted and Apprehensive Patient Cognition Impaired: No Ability to Follow Directions: Excellent Speech Pattern: Clear, Appropriate and Spontaneous Speech, nonpressured, spontaneous with regular rate and rhythm, normal volume and prosody. No dysarthria. Memory Description: Intact, Immediate Intact and Short Term Intact Hallucinations: None Delusions: Not Present Thought Process: Intact Thought Content: positive for Intact, positive for Logical, denies Suicidal Ideation and denies Homicidal Ideation. Depressive Symptoms: Not present. Judgement and Insight: Limited but adequate. Course Reevaluation(s) Reevaluation #1: 73-year-old female multiple ED visits this week for evaluation of worsening diffuse joint pain likely secondary to osteoarthritis. Unremarkable labs today. New health insurance will be active on 11/17/2023 (tomorrow). Patient's symptoms consistent with depression no SI, no HI, no hallucination Will obtain care team consultation. Consider rehab placement and psychiatric social worker with PT evaluation. Time: 11:01 Reevaluation #2: a 73-year-old female who is here for nausea, vomiting and the brief abdominal pain found to have acute transaminitis of unclear etiology, CT of the abdomen and pelvis showing no hepatobiliary pathology, ultrasound of the abdomen also showing no acute pathology, patient currently have no abdominal pain, no jaundice will admit the patient to the medical floor for further workup for the acute transaminitis. Time: 15:55 Medical Decision Making Differential Diagnosis Differential Diagnoses: The differential diagnosis associated with the presentation includes ( Osteoarthritis, electrolyte derangement, dehydration, UTI, depression, SI, physical therapy and rehab, Transaminitis, hepatobiliary pathology.) Admission/Observation Consideration of admission/observation: Escalation of care including admission/observation considered Consult Healthcare Provider Management of the patient was discussed with: Hospitalist (Dr. Michele) Lab Data MDM Lab Attestation statement: I reviewed the patient's lab results. 11/16/23 11:18 11/16/23 11:18 Labs: Lab Results 11/16/23 Range/Units 11:18 WBC 11.1 H (4.8-10.8) X10*3/uL RBC 3.76 L (4.20-5.50) X10*6/uL Hgb 12.4 (12.0-16.0) g/dl Hct 36.4 L (37.0-47.0) % MCV 96.8 (80.0-98.0) fL MCH 33.0 (27.0-33.0) pg MCHC 34.1 (31.0-35.0) g/dl RDW 12.9 (11.0-16.0) % Plt Count 236 (160-400) X10*3/uL MPV 10.7 (9.4-12.3) fL Immature Gran % (Auto) 0.2 (0.0-0.4) % Neut % (Auto) 89.7 H (45-73) % Lymph % (Auto) 5.0 L (20-40) % [place] % (Auto) 4.8 (2-11) % Eos % (Auto) 0.0 (0-4) % Baso % (Auto) 0.3 (0-2) % Lymph # (Auto) 0.6 L (1.2-4.9) X10*3/uL [place] # (Auto) 0.5 (0.1-1.2) X10*3/uL Eos # (Auto) 0.0 (0.0-0.4) X10*3/uL Baso # (Auto) 0.0 (0.0-0.2) X10*3/uL Abs Immat Gran (auto) 0.02 (0.00-0.03) X10*3/uL Absolute Neuts (auto) 9.9 H (2.0-8.3) x10*3/uL Absolute Nucleated RBC 0.000 (0.0-0.012) X10*3/uL Nucleated RBC % (auto) 0.0 (0.0-0.2) /100WBC Sodium 142 (135-145) mmol/L Potassium 4.2 (3.3-5.1) mmol/L Chloride 108 (96-108) mmol/L Carbon Dioxide 24 (22-29) mmol/L Anion Gap 14 (12-20) BUN 18 H (9-16) mg/dL Creatinine 0.70 (0.5-1.4) mg/dL Estim Creat Clear Calc 75.7 Estimated GFR > 60 Random Glucose 116 H (60-115) mg/dL Calcium 9.8 (8.4-10.2) mg/dL Total Bilirubin 1.2 H (0.0-1.0) mg/dL Direct Bilirubin 0.6 H (0.0-0.5) mg/dL AST 895 H (5-31) U/L ALT 702 H (0-31) U/L Alkaline Phosphatase 104 (39-117) U/L Troponin I High Sens < 2.7 (<3.5-17.0) ng/L Total Protein 7.2 (6.5-8.0) g/dL Albumin 4.3 (3.5-5.0) g/dL Lipase 26 (8-78) U/L Independent Interpretation I performed an independent interpretation of an: Ultrasound ( Abdomen :* Echogenic material in the gallbladder probably gallbladder sludge. * No ultrasound evidence of cholecystitis. ) and CT Scan ( Abdomen pelvis:1. A cause for the patient's transaminitis and nausea and vomiting has not been found. 2. Incidental note made of mild emphysematous changes in the lung bases, benign left renal cysts which need no further imaging or follow-up, hysterectomy and degenerative changes in the spine wi) Radiology Impression Discussion of test interpretation with radiology: I have reviewed the radiologist's reading. Discharge Plan Discharge Clinical Impression: Osteoarthritis, Depression, Transaminitis Patient Disposition: Admitted As Inpatient Print Language: Luxembourgish
[2023-11-16 11:23] LABS: MANUAL DIFF FLAG NO
[2023-11-16 11:26] LABS: Basophils Percent Auto 0.3 % (0-2); Hematocrit 36.4 % (37.0-47.0); Hemoglobin 12.4 g/dl (12.0-16.0); Imm Gran Abs Auto 0.02 X10*3/uL (0.00-0.03); Imm Gran Pct Auto 0.2 % (0.0-0.4); Lymphocytes Absolute Auto 0.6 X10*3/uL (1.2-4.9); Mean Corpuscular HGB Conc 34.1 g/dl (31.0-35.0); Mean Corpuscular Volume 96.8 fL (80.0-98.0); Mean Platelet Volume 10.7 fL (9.4-12.3); Monocytes Absolute Auto 0.5 X10*3/uL (0.1-1.2); Monocytes Percent Auto 4.8 % (2-11); Neutrophils Absolute Auto 9.9 x10*3/uL (2.0-8.3); Neutrophils Percent Auto 89.7 % (45-73); Platelet Count 236 X10*3/uL (160-400); Red Blood Count 3.76 X10*6/uL (4.20-5.50); Red Cell Distribution Width 12.9 % (11.0-16.0); White Blood Count 11.1 X10*3/uL (4.8-10.8)
[2023-11-16 11:42] LABS: Alanine Aminotransferase 702 U/L (0-31); Albumin Level 4.3 g/dL (3.5-5.0); Alkaline Phosphatase 104 U/L (39-117); Anion Gap 14 (12-20); Aspartate Amino Transferase 895 U/L (5-31); Bilirubin Direct 0.6 mg/dL (0.0-0.5); Bilirubin Total 1.2 mg/dL (0.0-1.0); Blood Urea Nitrogen 18 mg/dL (9-16); Calcium 9.8 mg/dL (8.4-10.2); Carbon Dioxide 24 mmol/L (22-29); Chloride 108 mmol/L (96-108); Creatinine Clr Calc Pharmacy 75.7; Estimated Glomerular Filt Rate > 60; Glucose Random 116 mg/dL (60-115); Lipase 26 U/L (8-78); Potassium 4.2 mmol/L (3.3-5.1); Sodium 142 mmol/L (135-145); Total Protein 7.2 g/dL (6.5-8.0)
[2023-11-16 11:52] LABS: Troponin-I High Sensitivity < 2.7 ng/L (<3.5-17.0)
--- NOTE | 2023-11-16 13:51 | MHC.CM.PN ---
Addendum entered by Esther Zelaya RN 11/16/23 13:55: PT EVAL PENDING FOR FRIDAY, SNF REFERRAL PLACED. Original Note: EMR REVIEWED, CM RECEIVED CM CONSULT FROM ED PROVIDER TONY HILL MD. CM MET W/PT WHO REPORTS SHE WOULD LIKE STR AND PREFERS [facility] BEING 2ND CHOICE. PT REPORTS SHE LIVES ALONE, USES O2 AT NOC AND A CANE HOWEVER ALSO HAS A WALKER AVAILABLE, PT IS FULLY INDEP AT BASELINE AND STOPPED WORKING THIS YEAR AROUND JUNE. PT WOULD LIKE TO COMPLETE A HCP NAMING HER SON JARRELL VILLEGAS [phone] HER [facility] AND HER DTR DUANE VILLEGAS [phone] HER ALTERNATE, BOTH LIVE IN [facility] AND ARE AVAILABLE VIA PHONE. ONCE COMPLETE COPY TO BE UPLOADED TO [facility] AND PLACED IN CHART.
[2023-11-16 15:35] VITALS: BP 114/52; PULSE 59; RESP 17; O2SAT 95
[2023-11-16 16:43] LABS: Alanine Aminotransferase 721 U/L (0-31); Albumin Level 4.2 g/dL (3.5-5.0); Alkaline Phosphatase 117 U/L (39-117); Anion Gap 14 (12-20); Aspartate Amino Transferase 727 U/L (5-31); Bilirubin Direct 0.3 mg/dL (0.0-0.5); Bilirubin Total 0.8 mg/dL (0.0-1.0); Blood Urea Nitrogen 14 mg/dL (9-16); Calcium 10.1 mg/dL (8.4-10.2); Carbon Dioxide 26 mmol/L (22-29); Chloride 106 mmol/L (96-108); Creatinine Clr Calc Pharmacy 81.5; Estimated Glomerular Filt Rate > 60; Glucose Random 86 mg/dL (60-115); Lipase 13 U/L (8-78); Potassium 4.2 mmol/L (3.3-5.1); Sodium 142 mmol/L (135-145); Total Protein 7.2 g/dL (6.5-8.0)
[2023-11-16 16:47] LABS: Appearance Urine Clear; Color Urine Dark Yellow; Glucose Urine UA Negative (Negative); Leukocyte Esterase Urine Negative (Negative); Nitrite Urine Negative (Negative); Specific Gravity - Urine 1.015 (1.005-1.025); Urine Blood Negative (Negative); Urine Ketones 15 mg/dL (Negative); Urine Protein Negative (Neg-Trace)
[2023-11-16 17:18] VITALS: BP 108/50; PULSE 80; RESP 17; O2SAT 95
--- NOTE | 2023-11-16 17:19 | P.HPHOSP_ITS ---
History of Present Illness Date of Service: 11/16/23 Chief Complaint: Dizziness, leg pain, toe numbness and chest pain This is a 73-year-old female patient with past medical history significant for varicose veins, bilateral knee arthritis, status post left knee replacement and status post right hip replacement, patient was initially evaluated at [facility] on November 09 with multiple complaints including right leg pain, knee swelling and chest discomfort, she was noted to have bilateral lower extremity varicose veins, she was diagnosed to have musculoskeletal knee pain and was discharged home Naprosyn 250 b.i.d. and diclofenac gel, patient did not start new medications since she was already on ibuprofen 800 mg b.i.d. , patient presented again to [facility] emergency room November 14 due to right leg pain, persistent chest pain and numbness of bilateral toes, she was scared of amputation, her workup in ED included normal EKG, normal troponin, and an unremarkable chest x-ray Her CBC was unremarkable, normal electrolytes normal renal function and LFTs, patient was discharged home on Ultram 50 mg q.8 hours and recommended to continue Naprosyn and diclofenac gel, however patient returned back to [facility] emergency room this morning since while walking back home she became dizzy, fell sick vomited several times and became diaphoretic so she returned back to emergency room, according to patient 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 Patient had abdominal pain yesterday now resolved, no further bout of vomiting, no further diuresis or dizziness patient will be admitted to [facility] for further treatment and evaluation of elevated LFTs Review of Systems 2 Review of Systems: General no headache ,no dizziness no fever chills. CVS localized chest pain intermittent at rest Respiratory no cough, no sob Gastrointestinal abdominal pain resolved no further vomiting no urgency no frequency Musculoskeletal bilateral hip stiffness worse right side, bilateral lower extremity pain right greater than left, right knee swelling All other system reviewed and are negative PMFSH Social History Advance Directives: No Advance Directives Information Provided: No Meds Allergies Allergy/AdvReac Type Severity Reaction Status Date / Time cats Allergy Unknown Unknown Uncoded 11/16/23 09:58 Active Medications: Current Medications Calcium Carbonate (Calcium Carbonate 750 Mg Tab.Chew) 750 mg PO Q4H PRN PRN Reason: Heartburn Enoxaparin Sodium (Enoxaparin Sodium 40 Mg/0.4 Ml Syringe) 40 mg SUBCUT Q24H RUBEN Magnesium Hydroxide (Milk Of Magnesia 30 Ml Oral.Susp) 30 ml PO DAILY PRN PRN Reason: Constipation Melatonin (Melatonin 3 Mg Tablet) 6 mg PO BEDTIME PRN PRN Reason: Insomnia Ondansetron HCl (Ondansetron Hcl 4 Mg/2 Ml Vial) 4 mg IVPUSH Q8H PRN PRN Reason: Nausea and Vomiting Oxycodone HCl (Oxycodone Hcl Immed Release 5 Mg Tablet) 5 mg PO Q6H PRN PRN Reason: Pain, Severe (Pain Scale 7-10) Sodium Chloride (0.9 % Sodium Chloride Flush 3 Ml Syringe) 3 ml IVFLUSH QSHIFT [facility] Home Medications ?Medication ?Instructions ?Recorded ?Confirmed ?Last Taken ?Type ibuprofen 800 mg tablet 800 mg PO Q8H PRN pain 11/16/23 Unknown History omeprazole 20 mg capsule,delayed 20 mg PO DAILY 11/16/23 Unknown History release Physical Exam 2 Vital Signs and Narrative: Vital Signs: Last Vital Signs Temp 97.9 F 11/16/23 09:56 Pulse 59 11/16/23 15:35 Resp 17 11/16/23 15:35 BP 114/52 L 11/16/23 15:35 Pulse Ox 95 11/16/23 15:35 O2 Del Method Room Air 11/16/23 15:35 BMI result Body Mass Index 32.0 Const: Other: General awake alert x3, in no acute distress. Anicteric sclera Neck no JVD. CVS regular rate rhythm, reproducible left-sided chest pain Respiratory lungs clear to auscultation, no respiratory distress, no wheeze, no rhonchi. Gastrointestinal abdomen soft, non tender, bowel sounds audible Extremities no pitting edema. Musculoskeletal swollen right knee, no warmth, no redness Neuro non focal Skin no rash, bilateral lower extremities varicosities Psych appropriate affect Results Labs 11/16/23 11:18 11/16/23 16:05 Labs: Laboratory Results - last 24 hr 11/16/23 11/16/23 11/16/23 11:18 16:05 16:36 MCV 96.8 MCH 33.0 MCHC 34.1 RDW 12.9 Plt Count 236 MPV 10.7 Immature Gran % (Auto) 0.2 Neut % (Auto) 89.7 H Lymph % (Auto) 5.0 L [place] % (Auto) 4.8 Eos % (Auto) 0.0 Baso % (Auto) 0.3 Lymph # (Auto) 0.6 L [place] # (Auto) 0.5 Eos # (Auto) 0.0 Baso # (Auto) 0.0 Abs Immat Gran (auto) 0.02 Absolute Neuts (auto) 9.9 H Absolute Nucleated RBC 0.000 Nucleated RBC % (auto) 0.0 Anion Gap 14 14 Estim Creat Clear Calc 75.7 81.5 Estimated GFR > 60 > 60 Random Glucose 116 H 86 Calcium 9.8 10.1 Total Bilirubin 1.2 H 0.8 Direct Bilirubin 0.6 H 0.3 AST 895 H 727 H ALT 702 H 721 H Alkaline Phosphatase 104 117 Troponin I High Sens < 2.7 Total Protein 7.2 7.2 Albumin 4.3 4.2 Lipase 26 13 Urine Color Dark Yellow Urine Appearance Clear Urine pH 7.0 Ur Specific [place] 1.015 Urine Protein Negative Urine Glucose (UA) Negative Urine Ketones 15 Urine Blood Negative Urine Nitrite Negative Ur Leukocyte Esterase Negative Imaging Radiologist's Impressions: Impressions Abdomen Ultrasound 11/16/23 12:57 IMPRESSION: * Echogenic material in the gallbladder probably gallbladder sludge. * No ultrasound evidence of cholecystitis. Abdomen/Pelvis CT 11/16/23 13:27 IMPRESSION: 1. A cause for the patient's transaminitis and nausea and vomiting has not been found. 2. Incidental note made of mild emphysematous changes in the lung bases, benign left renal cysts which need no further imaging or follow-up, hysterectomy and degenerative changes in the spine with right total hip prosthesis. Fleischner guidelines were followed. Assessment and Plan (1) Transaminitis: Status: Acute (2) Osteoarthritis: Status: Acute (3) Varicose vein of leg: Status: Acute (4) Knee pain, right: Status: Acute (5) Chest pain: Status: Acute Plan 73-year-old female patient with past medical history significant for osteoarthritis of both knees, hip history of varicosities presented to [facility] multiple times for similar symptoms of bilateral lower leg pain, numbness of toes and chest pain all workup was negative on November 09 and November 14 patient was discharged home with recommendations to take NSAIDs however after walking 2 miles to return home this morning patient developed dizziness, weakness, nausea, vomiting, worsening bilateral leg pain therefore returned back to the emergency room feeling stressed out, tearful and felt unsafe to return home, workup in the emergency room showed elevated LFTs therefore being admitted under observation for further workup. Elevated LFTs Likely related to NSAIDs, has been on ibuprofen 800 mg b.i.d., has not started aleeve Denies history of alcohol use, no Tylenol abuse, on multiple multivitamins Abdominal and pelvic CT showed no acute abnormality there was incidental note of mild emphysematous changes in the lung and benign left renal cyst Abdominal ultrasound showed echogenic material in the gallbladder probably gallbladder sludge no ultrasound evidence of cholecystitis noted Repeat LFTs are trending down, total bili normalized, normal alk-phos, normal albumin and INR Hepatitis ABC serology ordered report pending, will check Tylenol level Recheck labs at a.m. Musculoskeletal chest pain no further workup warranted , normal troponin and EKG. Bilateral leg pain right greater than left likely due to right knee osteoarthritis/varicose veins has outpatient follow-up with Orthopedic surgery. Outpatient follow-up with vascular surgery Will avoid NSAIDs and Tylenol will place on oxycodone for pain continue Aspercreme/hot pack. Patient working on weight loss. Bilateral toe numbness Normal sensation/pulse. Outpatient follow-up with vascular surgery. DVT prophylaxis with Lovenox. Full code Admitted for observation for follow-up on LFTs. Quality Stroke Does the patient have a stroke diagnosis?: No VTE Prior VTE?: No VTE Risk Level:: Medical - moderate - high VTE Device Contraindication: Treatment Not Indicated VTE Drug Contraindication: N/A - Med Ordered
--- NOTE | 2023-11-16 18:35 | PHA.MEDREC ---
Pharmacy Consult ? Medication Reconciliation Pharmacy has completed the medication reconciliation.
[2023-11-16 18:52] LABS: Acetaminophen LAB < 3 mcg/mL (<30)
[2023-11-16 19:01] VITALS: BP 127/59; PULSE 82; RESP 17; O2SAT 95
--- NOTE | 2023-11-16 19:33 | MHC.EDTECH ---
pt ambulated to the bathroom, reported pain, stated she has been taking ibuprofen that she has with her, RN notified.
[2023-11-16 20:08] VITALS: BP 117/65; PULSE 80; RESP 14; TEMP 37.2; O2SAT 98
--- NOTE | 2023-11-16 20:12 | MHC.EDTECH ---
pt requesting teamtay RN notified.
[2023-11-16] MEDS: traMADoL HCL 50 MG TABLET PO (20:15)
[2023-11-17 05:13] LABS: Hematocrit 34.9 % (37.0-47.0); Hemoglobin 11.6 g/dl (12.0-16.0); Mean Corpuscular HGB Conc 33.2 g/dl (31.0-35.0); Mean Corpuscular Hemoglobin 32.3 pg (27.0-33.0); Mean Corpuscular Volume 97.2 fL (80.0-98.0); Mean Platelet Volume 11.3 fL (9.4-12.3); Platelet Count 230 X10*3/uL (160-400); Red Blood Count 3.59 X10*6/uL (4.20-5.50); White Blood Count 6.7 X10*3/uL (4.8-10.8)
[2023-11-17 05:32] LABS: Alanine Aminotransferase 753 U/L (0-31); Albumin Level 3.7 g/dL (3.5-5.0); Alkaline Phosphatase 130 U/L (39-117); Anion Gap 15 (12-20); Aspartate Amino Transferase 630 U/L (5-31); Bilirubin Direct 0.2 mg/dL (0.0-0.5); Bilirubin Total 0.5 mg/dL (0.0-1.0); Blood Urea Nitrogen 18 mg/dL (9-16); Carbon Dioxide 23 mmol/L (22-29); Chloride 105 mmol/L (96-108); Creatinine Clr Calc Pharmacy 80.2; Estimated Glomerular Filt Rate > 60; Glucose Random 104 mg/dL (60-115); Sodium 139 mmol/L (135-145); Total Protein 6.5 g/dL (6.5-8.0)
[2023-11-17 05:49] LABS: HBS Num1 0.56 mIU/mL (0-7.99); HBc Num1 0.18 S/CO (0.00-0.79); HBsAGNum1 0.34 S/CO (0.00-0.99); Hepatitis B Core Antibody Nonreactive (Nonreactive); Hepatitis B Surface Antigen Negative (Negative); ~HepC Num1 0.15 S/CO (0.00-0.79); ~Hepatitis A Antibody IgM Nonreactive (Nonreactive); ~Hepatitis B Surface Antibody NONREACTIVE (Nonreactive); ~Hepatitis C Antibody Nonreactive (Nonreactive)
[2023-11-17 05:58] VITALS: BP 124/66; PULSE 61; RESP 12; TEMP 36.9; O2SAT 91
[2023-11-17 08:21] LABS: Gamma Glutamyl Transpeptidase 108 U/L (7-33)
[2023-11-17 10:41] VITALS: BP 124/66; PULSE 61; O2SAT 91
[2023-11-17 11:00] VITALS: BP 133/61; PULSE 66; RESP 14; TEMP 5392.7; TEMP 9739; O2SAT 94
--- NOTE | 2023-11-17 12:48 | HO.PM.IMPN ---
Subjective Subjective Date of Service: 11/17/23 Interval History: no RUQ pain except that provoked by US exam no N/V c/o pain in legs + R knee swelling, paresthesias of feet Review of Systems Review of Systems: Yes all other systems are reviewed and are negative Physical Exam Vital Signs: Vital Signs: Last Vital Signs Temp 9739 F H 11/17/23 11:00 Pulse 66 11/17/23 11:00 Resp 14 11/17/23 11:00 BP 133/61 11/17/23 11:00 Pulse Ox 94 11/17/23 11:00 O2 Del Method Room Air 11/17/23 11:00 BMI result Body Mass Index 32.0 Objective Data Active Medications Albuterol Sulfate (Albuterol Sulfate 90 Mcg 8 Gm Inhaler) 2 puff INHALE Q6H PRN PRN Reason: Shortness Of Breath Or Wheezing Calcium Carbonate (Calcium Carbonate 750 Mg Tab.Chew) 750 mg PO Q4H PRN PRN Reason: Heartburn Enoxaparin Sodium (Enoxaparin Sodium 40 Mg/0.4 Ml Syringe) 40 mg SUBCUT Q24H [facility], [facility]1983 Last Admin: 11/16/23 22:06 Dose: Not Given Documented By: SOCRATES Non-Admin Reason: See Note Magnesium Hydroxide (Milk Of Magnesia 30 Ml Oral.Susp) 30 ml PO DAILY PRN PRN Reason: Constipation Melatonin (Melatonin 3 Mg Tablet) 6 mg PO BEDTIME PRN PRN Reason: Insomnia Ondansetron HCl (Ondansetron Hcl 4 Mg/2 Ml Vial) 4 mg IVPUSH Q8H PRN PRN Reason: Nausea and Vomiting Oxycodone HCl (Oxycodone Hcl Immed Release 5 Mg Tablet) 5 mg PO Q6H PRN PRN Reason: Pain, Severe (Pain Scale 7-10) Sodium Chloride (0.9 % Sodium Chloride Flush 3 Ml Syringe) 3 ml IVFLUSH QSHIFT [facility] Last Admin: 11/17/23 11:02 Dose: Not Given Documented By: PEACE Non-Admin Reason: off unit ed Trolamine Salicylate (Trolamine Salicylate 10 % Cream 141 Gm Tube) 1 appl TOPICAL TID PRN; Protocol PRN Reason: Pain, Mild (Pain Scale 1-3) Labs 11/17/23 04:21 11/17/23 04:21 Labs: Laboratory Results - last 24 hr 11/16/23 11/16/23 11/17/23 16:05 16:36 04:21 MCV 97.2 MCH 32.3 MCHC 33.2 RDW 13.0 Plt Count 230 MPV 11.3 Absolute Nucleated RBC 0.000 Nucleated RBC % (auto) 0.0 Anion Gap 14 15 Estim Creat Clear Calc 81.5 80.2 Estimated GFR > 60 > 60 Random Glucose 86 104 Calcium 10.1 10.0 Total Bilirubin 0.8 0.5 Direct Bilirubin 0.3 0.2 GGT 108 H AST 727 H 630 H ALT 721 H 753 H Alkaline Phosphatase 117 130 H Total Creatine Kinase 68 Total Protein 7.2 6.5 Albumin 4.2 3.7 Lipase 13 Urine Color Dark Yellow Urine Appearance Clear Urine pH 7.0 Ur Specific [place] 1.015 Urine Protein Negative Urine Glucose (UA) Negative Urine Ketones 15 Urine Blood Negative Urine Nitrite Negative Ur Leukocyte Esterase Negative Acetaminophen < 3 Hepatitis A IgM Ab Nonreactive Hep Bs Antigen Negative Hep Bs Antibody NONREACTIVE Hep B Core Total Ab Nonreactive Hepatitis C Ab (EIA) Nonreactive Assessment and Plan (1) Transaminitis: Status: Acute Plan d2 73yo F with OA, varicoase veins multiple ED visits recently for bilateral leg pain, toe numbness + chest pain with negative workup returned with dizziness, weakness, N/V; found to have elevated LFTs of unknown cause transaminasemia - ?medication effect [NSAID or tramadol?] GI consult pending; continue to trend LFTs + INR. APAP level <3 and pt denies heavy APAP use; hepatitis serologies negative musculoskeletal pain - no further workup; normal troponin + EKG bilateral leg pain + varicose veins + toe numbness - outpt f/u with Orthopedics + Vasc Surgery VTE ppx - LMWH dispo - PT eval done, recommend home with VNA In my clinical judgment, the patient requires continued inpatient hospitalization for the following reasons: LFT monitoring Total time managing care of this patient today: 35 minutes. Quality Stroke Does the patient have a stroke diagnosis?: No VTE Prior VTE?: No VTE Risk Level:: Medical - moderate - high VTE Device Contraindication: Treatment Not Indicated VTE Drug Contraindication: N/A - Med Ordered
[2023-11-17 15:49] VITALS: BP 123/62; PULSE 65; RESP 20; TEMP 36.3; O2SAT 94
--- NOTE | 2023-11-17 16:27 | PM.GICN ---
History of Present Illness Data of Consult Service Date: 11/17/23 Requesting physician: Waleska Barreto Primary Care Provider: Marielena Cano MD HPI Reason for consult: elevated LFTs 73 YF with hx of varicose veins, bilateral knee arthritis, status post left knee replacement and status post right hip replacement, seen at [facility] ED on 11/16/23 with dizziness, fell sick vomited several times and became diaphoretic. 11/10/23 Patient was initially evaluated at [facility] with multiple complaints including right leg pain, knee swelling and chest discomfort, she was noted to have bilateral lower extremity varicose veins, she was diagnosed to have musculoskeletal knee pain and was discharged home Naprosyn 250 b.i.d. and diclofenac gel, Patient reports she did not start new medications since she was already on ibuprofen 800 mg b.i.d. 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 Patient had abdominal pain yesterday now resolved, no further bout of vomiting, no further diuresis or dizziness Patient was admitted to [facility] for further evaluation 11/16/23 ABD US SHOWED: * Echogenic material in the gallbladder probably gallbladder sludge. * No ultrasound evidence of cholecystitis. 11/16/23 Abdomen/Pelvis CT SHOWED: 1. A cause for the patient's transaminitis and nausea and vomiting has not been found. 2. Incidental note made of mild emphysematous changes in the lung bases, benign left renal cysts which need no further imaging or follow-up, hysterectomy and degenerative changes in the spine with right total hip prosthesis. Review of Systems Review of Systems: General no headache ,no dizziness no fever chills. CVS localized chest pain intermittent at rest Respiratory no cough, no sob Gastrointestinal abdominal pain resolved no further vomiting no urgency no frequency Musculoskeletal bilateral hip stiffness worse right side, bilateral lower extremity pain right greater than left, right knee swelling All other system reviewed and are negative [facility] Social History Social History Patient Tobacco Use Status: Never used Tobacco Meds Allergies Allergy/AdvReac Type Severity Reaction Status Date / Time cats Allergy Unknown Unknown Uncoded 11/16/23 09:58 Active Medications: Current Medications Albuterol Sulfate (Albuterol Sulfate 90 Mcg 8 Gm Inhaler) 2 puff INHALE Q6H PRN PRN Reason: Shortness Of Breath Or Wheezing Calcium Carbonate (Calcium Carbonate 750 Mg Tab.Chew) 750 mg PO Q4H PRN PRN Reason: Heartburn Enoxaparin Sodium (Enoxaparin Sodium 40 Mg/0.4 Ml Syringe) 40 mg SUBCUT Q24H [facility] Last Admin: 11/16/23 22:06 Dose: Not Given Magnesium Hydroxide (Milk Of Magnesia 30 Ml Oral.Susp) 30 ml PO DAILY PRN PRN Reason: Constipation Melatonin (Melatonin 3 Mg Tablet) 6 mg PO BEDTIME PRN PRN Reason: Insomnia Ondansetron HCl (Ondansetron Hcl 4 Mg/2 Ml Vial) 4 mg IVPUSH Q8H PRN PRN Reason: Nausea and Vomiting Oxycodone HCl (Oxycodone Hcl Immed Release 5 Mg Tablet) 5 mg PO Q6H PRN PRN Reason: Pain, Severe (Pain Scale 7-10) Sodium Chloride (0.9 % Sodium Chloride Flush 3 Ml Syringe) 3 ml IVFLUSH QSHIFT [facility] Last Admin: 11/17/23 11:02 Dose: Not Given Trolamine Salicylate (Trolamine Salicylate 10 % Cream 141 Gm Tube) 1 appl TOPICAL TID PRN; Protocol PRN Reason: Pain, Mild (Pain Scale 1-3) Home Medications ?Medication ?Instructions ?Recorded ?Confirmed ?Last Taken ?Type albuterol sulfate 90 mcg/actuation 2 puff inhalation Q6H PRN 11/16/23 11/16/23 Unknown History aerosol inhaler Shortness Of Breath Or Wheezing calcium carbonate 600 mg-vitamin 1 tab PO DAILY 11/16/23 11/16/23 11/15/23 History D3 5 mcg (200 unit) tablet capsaicin 0.025 % topical cream 1 appl topical DAILY PRN Pain 11/16/23 11/16/23 11/15/23 History dextran 70-hypromellose (PF) 0.1 1 drp ophthalmic (eye) Q2H PRN Dry 11/16/23 11/16/23 Unknown History %-0.3 % eye drops in a dropperette Eyes (Artificial Tears (PF)) estradiol 0.01% (0.1 mg/gram) 1 g vaginal 2XW PRN menopause 11/16/23 11/16/23 Unknown History vaginal cream symptoms ibuprofen 800 mg tablet 800 mg PO Q8H PRN pain 11/16/23 11/16/23 Unknown History loratadine 10 mg tablet (Claritin) 10 mg PO DAILY 11/16/23 11/16/23 11/15/23 History multivitamin 1 tab PO DAILY 11/16/23 11/16/23 11/15/23 History omega 0-tgr-lgl-fish oil 300 1 cap PO DAILY 11/16/23 11/16/23 11/15/23 History mg-1,000 mg capsule,delayed release (Fish Oil) vitamin E 268 mg (400 unit) capsule 268 mg PO DAILY 11/16/23 11/16/23 11/15/23 History Physical Exam Vital Signs: Vital Signs: Last Vital Signs Temp 97.4 F 11/17/23 15:49 Pulse 65 11/17/23 15:49 Resp 20 11/17/23 15:49 BP 123/62 11/17/23 15:49 Pulse Ox 94 11/17/23 15:49 O2 Del Method Room Air 11/17/23 15:49 BMI result Body Mass Index 32.0 Const: General: no acute distress Nutritional Appearance: obese Orientation/consciousness: patient oriented x3 Limitations: no limitations HEENT: Head: Yes normal to inspection Ears: hearing grossly normal bilaterally Eyes: Sclerae: sclerae normal Pupils: Equal, round and reactive pupils present Neck: Neck: Yes normal visual inspection Chest: Chest palpation & inspection: normal inspection of the chest Resp: Effort & Inspection: normal respiratory effort Auscultation: clear to auscultation bilaterally Cardio: Palpation: normal PMI Rate: regular rate Rhythm: regular rhythm Heart sounds: S1 normal heart sound present, S2 normal heart sound present and no murmurs GI: Palpation (GI): Soft to palpation, nontender and No hepatosplenomegaly present Auscultation: normal bowel sounds Rectal Exam - Female: deferred Skin: General skin exam: no rashes or lesions noted Neuro: General: patient oriented x3, gait normal and moves all extremities Cranial nerves: Yes Equal, round and reactive pupils present Psych: Appearance: grossly normal Mental Status: mental status grossly normal Results Labs 11/17/23 04:21 11/18/23 05:20 Labs: Short CBC 11/17/23 Range/Units 04:21 WBC 6.7 (4.8-10.8) X10*3/uL Hgb 11.6 L (12.0-16.0) g/dl Hct 34.9 L (37.0-47.0) % Plt Count 230 (160-400) X10*3/uL BMP 11/16/23 11/17/23 16:05 04:21 Sodium 142 139 Potassium 4.2 4.0 Chloride 106 105 Carbon Dioxide 26 23 BUN 14 18 H Creatinine 0.65 0.66 Calcium 10.1 10.0 Cardiac Enzymes 11/17/23 Range/Units 04:21 Total Creatine Kinase 68 (26-140) U/L Liver Function 11/16/23 11/17/23 Range/Units 16:05 04:21 Total Bilirubin 0.8 0.5 (0.0-1.0) mg/dL Direct Bilirubin 0.3 0.2 (0.0-0.5) mg/dL GGT 108 H (7-33) U/L AST 727 H 630 H (5-31) U/L ALT 721 H 753 H (0-31) U/L Alkaline Phosphatase 117 130 H (39-117) U/L Albumin 4.2 3.7 (3.5-5.0) g/dL Urine 11/16/23 Range/Units 16:36 Urine Color Dark Yellow Urine Appearance Clear Urine pH 7.0 (5.0-9.0) Ur Specific [place] 1.015 (1.005-1.025) Urine Protein Negative (Neg-Trace) mg/dL Urine Glucose (UA) Negative (Negative) mg/dL Assessment and Plan (1) Elevated LFTs: Status: Acute Plan 73 YF with hx of varicose veins, bilateral knee arthritis, status post left knee replacement and status post right hip replacement, admitted to [facility] on 11/16/23 with dizziness, fell sick vomited several times and became diaphoretic. GI consulted since labs on 11/15 showed elevated AST 895, ALT 7O2, (AST was 34 and ALT 20 on 11/14) Total bili 1.2, normal protein, and INR. Hepatitis serologies were negative Pt denies past hx of liver disease and attributes elevation of LFTs to Tramadol which she was given in the ED (States her urine became dark after she took the medication) Elevated LFTs can be due to acute presentation of autoimune hepatitis, drug toxicity or transient biliary obstruction (Presence of GB sludge on abd US is suggestive of biliary obstruction by a small stone or sludge) RECOMMENDATIONS: 1. Check ROSHNI, smooth muscle ab and celiac serologies - added to am labs 2. Further evaluation with HIDA scan was discussed with the pt. She refused to have the HIDA scan since she is convinced it is due to Tramadol (concerned if her insurance will cover it) first She is focused on treatment of knee pain first. Procedures Date of Service Date of Service: 11/18/23
[2023-11-17] MEDS: Enoxaparin Sodium 40 MG/0.4 ML SYRINGE SUBCUT (17:43)
[2023-11-17] MEDS: 0.9 % Sodium Chloride Flush 3 ML SYRINGE IVFLUSH ×2 (17:44→21:32)
[2023-11-17 19:34] VITALS: BP 132/68; PULSE 72; RESP 18; TEMP 36.5; O2SAT 96
[2023-11-18 03:28] VITALS: BP 120/57; PULSE 51; RESP 18; TEMP 36.1; O2SAT 97
[2023-11-18 06:28] LABS: Alanine Aminotransferase 581 U/L (0-31); Albumin Level 3.8 g/dL (3.5-5.0); Alkaline Phosphatase 135 U/L (39-117); Anion Gap 11 (12-20); Aspartate Amino Transferase 299 U/L (5-31); Bilirubin Total 0.4 mg/dL (0.0-1.0); Blood Urea Nitrogen 15 mg/dL (9-16); Calcium 9.5 mg/dL (8.4-10.2); Carbon Dioxide 27 mmol/L (22-29); Chloride 107 mmol/L (96-108); Creatinine Clr Calc Pharmacy 86.9; Estimated Glomerular Filt Rate > 60; Glucose Random 96 mg/dL (60-115); Sodium 141 mmol/L (135-145); Total Protein 6.5 g/dL (6.5-8.0)
[2023-11-18 08:00] VITALS: BP 138/63; PULSE 63; RESP 18; TEMP 36.3; O2SAT 97
[2023-11-18] MEDS: 0.9 % Sodium Chloride Flush 3 ML SYRINGE IVFLUSH ×2 (09:38→21:53)
--- NOTE | 2023-11-18 09:48 | MHC.CM.PN ---
OLVERA delivered. Patient lives at home alone. Ambulates w/ a cane. Owns a walker, but has not needed. 2L O2 @ NOC for ROHITH. PCP Marielena Cano HCP on file and verified DP: PT rec home w/ services. No preference for agency. Referrals sent via [facility]. CM will continue to follow.
[2023-11-18 10:35] VITALS: BP 138/63; PULSE 63; O2SAT 97
[2023-11-18 15:10] VITALS: BP 118/61; PULSE 63; RESP 16; TEMP 36.5; O2SAT 98
--- NOTE | 2023-11-18 17:15 | PC.NURSE ---
Patient off unit for testing
[2023-11-18 20:00] VITALS: BP 132/63; PULSE 85; RESP 18; TEMP 36.5; O2SAT 94
[2023-11-19 03:34] VITALS: BP 130/64; PULSE 66; RESP 16; TEMP 36; O2SAT 98
[2023-11-19] MEDS: 0.9 % Sodium Chloride Flush 3 ML SYRINGE IVFLUSH (07:16)
[2023-11-19 07:44] VITALS: BP 124/59; PULSE 67; RESP 18; TEMP 36; O2SAT 96
[2023-11-19 08:30] LABS: Alanine Aminotransferase 409 U/L (0-31); Alkaline Phosphatase 135 U/L (39-117); Aspartate Amino Transferase 132 U/L (5-31); Bilirubin Direct 0.2 mg/dL (0.0-0.5); Bilirubin Total 0.4 mg/dL (0.0-1.0); Total Protein 6.9 g/dL (6.5-8.0)
[2023-11-19 08:34] LABS: Immunoglobulin A 191 mg/dL (70-320)
--- NOTE | 2023-11-19 10:08 | P.F2F_ITS ---
Service Date Service Date: 11/19/23 Encounter Date of encounter: 11/19/23 Reasons for Services Signs and symptoms assessed: knee pain/mobility; refer to PT evaluation from 11/17/23 Reason for physical therapy: home safety and mobility, therapeutic exercises, restore joint function, gait/transfer training, assess need for DME, ADL training and energy conservation MD Overseeing Care: Marielena Cano Homebound: Leaving the home is medically contraindicated at this time without the asist of a device and/or another person due th the listed conditions above and below. Reason homebound: pain with ambulation Certification: Based on the above findings, I certify that this patient is confined to the home and needs intermittent senior living care, physical therapy and/or speech therapy, or continues to need occupational therapy. The patient is under my care, and I have initiated the establishment of the plan of care. The patient will be followed by a physician who will periodically review the plan of care. Time Spent With Patient Time: Total time managing care of this patient today ____ minutes.
--- NOTE | 2023-11-19 10:08 | PM.DS ---
DS: Providers Provider Date of Service: 11/19/23 Date of admission: 11/16/23 17:07 Date of discharge: 11/19/23 Primary care physician: Marielena Cano MD Consults: 11/16/23 10:49 Consult to Care Team Stat Comment: Reason for consultation: depression 11/17/23 08:51 Consult to Gastroenterology Routine Consulting Provider: [facility] Reason for consultation: transamnisemia DS: Diagnosis Discharge Diagnosis (1) Elevated LFTs: Status: Acute (2) Transaminitis: Status: Acute (3) Osteoarthritis: Status: Acute DS: Summary Hospital Course Hospital Course: From the history and physical by the admitting hospitalist, Marley Michele MD, 11/16/23: This is a 73-year-old female patient with past medical history significant for varicose veins, bilateral knee arthritis, status post left knee replacement and status post right hip replacement, patient was initially evaluated at [facility] on November 09 with multiple complaints including right leg pain, knee swelling and chest discomfort, she was noted to have bilateral lower extremity varicose veins, she was diagnosed to have musculoskeletal knee pain and was discharged home Naprosyn 250 b.i.d. and diclofenac gel, patient did not start new medications since she was already on ibuprofen 800 mg b.i.d. , patient presented again to [facility] emergency room November 14 due to right leg pain, persistent chest pain and numbness of bilateral toes, she was scared of amputation, her workup in ED included normal EKG, normal troponin, and an unremarkable chest x-ray Her CBC was unremarkable, normal electrolytes normal renal function and LFTs, patient was discharged home on Ultram 50 mg q.8 hours and recommended to continue Naprosyn and diclofenac gel, however patient returned back to [facility] room this morning since while walking back home she became dizzy, fell sick vomited several times and became diaphoretic so she returned back to emergency room, according to patient 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 Patient had abdominal pain yesterday now resolved, no further bout of vomiting, no further diuresis or dizziness patient will be admitted to [facility] for further treatment and evaluation of elevated LFTs She was admitted to the medical-surgical unit with gastroenterology consultation. Viral hepatitis serologies negative and APAP level <3. Sludge noted in the gallbladder. Transaminases trended downwards. She had no RUQ pain or PO intolerance. HIDA scan demonstrated nomral cystic and common bile duct filling but reduced gallbladder EF. Ultimately, her transaminases were likely medication-related [possibly tramadol] or due to inspissated sludge. She was counseled to avoid tramadol and to avoid fatty or greasy foods. Other liver serologies were ordered by the generator repairer and can be followed as an outpatient. She will follow up with Dr Cano from [facility] in 2 weeks. Repeat LFTs in 1 week were ordered. For ambulatory pain related to severe arthritis, home PT services were arranged. Time Attestation Discharge Coordination Time (in mins): 35 Quality: Safe Use of Opioids Does Pt have an Active Cancer Diagnosis on the Problem List?: No Quality: Stroke Does the patient have a stroke diagnosis?: No Physical Exam Vital Signs: Vital Signs: Last Vital Signs Temp 96.8 F 11/19/23 07:44 Pulse 67 11/19/23 07:44 Resp 18 11/19/23 07:44 BP 124/59 L 11/19/23 07:44 Pulse Ox 96 11/19/23 07:44 O2 Del Method Room Air 11/19/23 07:44 O2 Flow Rate 2 11/19/23 03:34 BMI result Body Mass Index 32.0 Gen: in no acute distress HEENT: sclera anicteric, moist mucus membranes Neck: supple Lungs: clear to auscultation bilaterally Heart: regular rate and rhythm, no murmurs Abd: soft, non-tender, non-distended, no Berger sign Ext: R knee swollen, not red or warm Skin: warm/well-perfused Neuro: alert and oriented x3, no focal findings Psych: appropriate affect DS: Data Data Completed and Pending Completed studies during hospitalization [Text1]: Laboratory Results WBC 6.7 X10*3/uL (4.8-10.8) 11/17/23 04:21 RBC 3.59 X10*6/uL (4.20-5.50) L 11/17/23 04:21 Hgb 11.6 g/dl (12.0-16.0) L 11/17/23 04:21 Hct 34.9 % (37.0-47.0) L 11/17/23 04:21 MCV 97.2 fL (80.0-98.0) 11/17/23 04:21 MCH 32.3 pg (27.0-33.0) 11/17/23 04:21 MCHC 33.2 g/dl (31.0-35.0) 11/17/23 04:21 RDW 13.0 % (11.0-16.0) 11/17/23 04:21 Plt Count 230 X10*3/uL (160-400) 11/17/23 04:21 MPV 11.3 fL (9.4-12.3) 11/17/23 04:21 Immature Gran % (Auto) 0.2 % (0.0-0.4) 11/16/23 11:18 Neut % (Auto) 89.7 % (45-73) H 11/16/23 11:18 Lymph % (Auto) 5.0 % (20-40) L 11/16/23 11:18 [place] % (Auto) 4.8 % (2-11) 11/16/23 11:18 Eos % (Auto) 0.0 % (0-4) 11/16/23 11:18 Baso % (Auto) 0.3 % (0-2) 11/16/23 11:18 Lymph # (Auto) 0.6 X10*3/uL (1.2-4.9) L 11/16/23 11:18 [place] # (Auto) 0.5 X10*3/uL (0.1-1.2) 11/16/23 11:18 Eos # (Auto) 0.0 X10*3/uL (0.0-0.4) 11/16/23 11:18 Baso # (Auto) 0.0 X10*3/uL (0.0-0.2) 11/16/23 11:18 Abs Immat Gran (auto) 0.02 X10*3/uL (0.00-0.03) 11/16/23 11:18 Absolute Neuts (auto) 9.9 x10*3/uL (2.0-8.3) H 11/16/23 11:18 Absolute Nucleated RBC 0.000 X10*3/uL (0.0-0.012) 11/17/23 04:21 Nucleated RBC % (auto) 0.0 /100WBC (0.0-0.2) 11/17/23 04:21 PT 12.0 SEC (11.1-13.3) 11/18/23 05:20 INR 1.0 (0.9-1.1) 11/18/23 05:20 Sodium 141 mmol/L (135-145) 11/18/23 05:20 Potassium 4.0 mmol/L (3.3-5.1) 11/18/23 05:20 Chloride 107 mmol/L (96-108) 11/18/23 05:20 Carbon Dioxide 27 mmol/L (22-29) 11/18/23 05:20 Anion Gap 11 (12-20) L 11/18/23 05:20 BUN 15 mg/dL (9-16) 11/18/23 05:20 Creatinine 0.61 mg/dL (0.5-1.4) 11/18/23 05:20 Estim Creat Clear Calc 86.9 11/18/23 05:20 Estimated GFR > 60 11/18/23 05:20 Random Glucose 96 mg/dL (60-115) 11/18/23 05:20 Calcium 9.5 mg/dL (8.4-10.2) 11/18/23 05:20 Total Bilirubin 0.4 mg/dL (0.0-1.0) 11/19/23 08:07 Direct Bilirubin 0.2 mg/dL (0.0-0.5) 11/19/23 08:07 GGT 108 U/L (7-33) H 11/17/23 04:21 AST 132 U/L (5-31) H 11/19/23 08:07 ALT 409 U/L (0-31) H 11/19/23 08:07 Alkaline Phosphatase 135 U/L (39-117) H 11/19/23 08:07 Total Creatine Kinase 68 U/L (26-140) 11/17/23 04:21 Troponin I High Sens < 2.7 ng/L (<3.5-17.0) 11/16/23 11:18 Total Protein 6.9 g/dL (6.5-8.0) 11/19/23 08:07 Albumin 4.0 g/dL (3.5-5.0) 11/19/23 08:07 Lipase 13 U/L (8-78) 11/16/23 16:05 Urine Color Dark Yellow 11/16/23 16:36 Urine Appearance Clear 11/16/23 16:36 Urine pH 7.0 (5.0-9.0) 11/16/23 16:36 Ur Specific [place] 1.015 (1.005-1.025) 11/16/23 16:36 Urine Protein Negative mg/dL (Neg-Trace) 11/16/23 16:36 Urine Glucose (UA) Negative mg/dL (Negative) 11/16/23 16:36 Urine Ketones 15 mg/dL (Negative) 11/16/23 16:36 Urine Blood Negative (Negative) 11/16/23 16:36 Urine Nitrite Negative (Negative) 11/16/23 16:36 Ur Leukocyte Esterase Negative (Negative) 11/16/23 16:36 Acetaminophen < 3 mcg/mL (<30) 11/16/23 16:05 IgA 191 mg/dL (70-320) 11/18/23 05:20 Hepatitis A IgM Ab Nonreactive (Nonreactive) 11/16/23 16:05 Hep Bs Antigen Negative (Negative) 11/16/23 16:05 Hep Bs Antibody NONREACTIVE (Nonreactive) 11/16/23 16:05 Hep B Core Total Ab Nonreactive (Nonreactive) 11/16/23 16:05 Hepatitis C Ab (EIA) Nonreactive (Nonreactive) 11/16/23 16:05 Impressions Abdomen Ultrasound 11/16/23 12:57 IMPRESSION: * Echogenic material in the gallbladder probably gallbladder sludge. * No ultrasound evidence of cholecystitis. Abdomen/Pelvis CT 11/16/23 13:27 IMPRESSION: 1. A cause for the patient's transaminitis and nausea and vomiting has not been found. 2. Incidental note made of mild emphysematous changes in the lung bases, benign left renal cysts which need no further imaging or follow-up, hysterectomy and degenerative changes in the spine with right total hip prosthesis. Fleischner guidelines were followed. Knee X-Ray 11/17/23 13:15 IMPRESSION: Moderate to severe osteoarthritis. Generalized soft tissue edema. No significant joint effusion Hepatobiliary Scan Nuclear Medicine 11/18/23 19:30 IMPRESSION: Abnormal gallbladder ejection fraction of 15% at 29 minutes. Patent cystic duct, patent CBD and normal hepatic uptake. Discharge Plan Discharge Patient Disposition: Home Health Service Discharge Diagnosis: elevated liver function tests knee arthritis Referrals: Marielena Cano MD [Primary Care Provider] - 1 Week Odilia Cano MD [Physician] - 2 Weeks Discharge Medications: Continued ibuprofen 800 mg tablet 800 mg PO Q8H PRN (Reason: pain) multivitamin Tablet 1 tab PO DAILY calcium carbonate-vitamin D3 600 mg-5 mcg (200 unit) Tablet 1 tab PO DAILY capsaicin 0.025 % Cream 1 appl TOPICAL DAILY PRN (Reason: Pain) Rx Instructions: do not wash area for at least 30 min after application estradiol 0.01 % (0.1 mg/gram) Cream 1 g VAGINAL 2XW PRN (Reason: menopause symptoms) albuterol sulfate 90 mcg/actuation Hfa Aerosol Inhaler 2 puff INHALATION Q6H PRN (Reason: Shortness Of Breath Or Wheezing) vitamin E 268 mg (400 unit) Capsule 268 mg PO DAILY loratadine [Claritin] 10 mg Tablet 10 mg PO DAILY Artificial Tears (PF) 0.1-0.3 % Dropperette 1 drp OPHTHALMIC (EYE) Q2H PRN (Reason: Dry Eyes) omega 5-ssh-wjw-fish oil [Fish Oil] 300-1,000 mg Capsule,Delayed Release(Dr/Ec) 1 cap PO DAILY Discharge Orders: Discharge Order (Routine); Ordered 11/19/23 Ordered By: Waleska Barreto Diet: Advance to usual diet Activity on Discharge: As tolerated Stand Alone Forms: Patient Portal Discharge page Print Language: Nicaraguan Other Ambulatory Orders: Liver Panel (Routine) Timeframe: 1 Week Facility: [facility] - Location: Laboratory Ordered By: Waleska Barreto Care Plan Goals: liver health Health Concerns: elevated liver function tests knee arthritis Plan of Treatment: home with [facility] for PT services outpatient Orthopedics consult avoid fatty/greasy foods repeat labs [LFTs] in 1 week follow up with Gastroenterology Dr [place] at [facility] [place] [facility] [place] Please follow up with your primary care doctor within 1 week. Return to the hospital if you experience recurrent or worsening symptoms. Assessment: See Discharge Summary.
--- NOTE | 2023-11-19 10:23 | P.PNIM_ITS ---
Subjective Subjective Date of Service: 11/18/23 Interval History: Late entry for progress note from 11/18/23 R knee pain/swelling No RUQ pain, nausea, or vomiting Review of Systems Review of Systems: Yes all other systems are reviewed and are negative Physical Exam 2 Vital Signs: Vital Signs: T 97.3, P 63, R 18, BP 138/63, SaO2 97 on RA Gen: in no acute distress HEENT: sclera anicteric, moist mucus membranes Neck: supple Lungs: clear to auscultation bilaterally Heart: regular rate and rhythm, no murmurs Abd: soft, non-tender, non-distended, no Berger sign Ext: no edema, R knee swollen without redness Skin: warm/well-perfused Neuro: alert and oriented x3, no focal findings Psych: appropriate affect Objective Data Active Medications Albuterol Sulfate (Albuterol Sulfate 90 Mcg 8 Gm Inhaler) 2 puff INHALE Q6H PRN PRN Reason: Shortness Of Breath Or Wheezing Calcium Carbonate (Calcium Carbonate 750 Mg Tab.Chew) 750 mg PO Q4H PRN PRN Reason: Heartburn Enoxaparin Sodium (Enoxaparin Sodium 40 Mg/0.4 Ml Syringe) 40 mg SUBCUT Q24H [facility] Last Admin: 11/18/23 17:21 Dose: Not Given Documented By: JED Non-Admin Reason: Not In Room Magnesium Hydroxide (Milk Of Magnesia 30 Ml Oral.Susp) 30 ml PO DAILY PRN PRN Reason: Constipation Melatonin (Melatonin 3 Mg Tablet) 6 mg PO BEDTIME PRN PRN Reason: Insomnia Ondansetron HCl (Ondansetron Hcl 4 Mg/2 Ml Vial) 4 mg IVPUSH Q8H PRN PRN Reason: Nausea and Vomiting Oxycodone HCl (Oxycodone Hcl Immed Release 5 Mg Tablet) 5 mg PO Q6H PRN PRN Reason: Pain, Severe (Pain Scale 7-10) Sodium Chloride (0.9 % Sodium Chloride Flush 3 Ml Syringe) 3 ml IVFLUSH QSHIFT [facility] Last Admin: 11/19/23 07:16 Dose: 3 ml Documented By: TWAN Trolamine Salicylate (Trolamine Salicylate 10 % Cream 141 Gm Tube) 1 appl TOPICAL TID PRN; Protocol PRN Reason: Pain, Mild (Pain Scale 1-3) Labs 11/17/23 04:21 11/18/23 05:20 Labs: Laboratory Results - last 48 hr 11/18/23 11/19/23 05:20 08:07 PT 12.0 INR 1.0 Sodium 141 Potassium 4.0 Chloride 107 Carbon Dioxide 27 Anion Gap 11 L BUN 15 Creatinine 0.61 Estim Creat Clear Calc 86.9 Estimated GFR > 60 Random Glucose 96 Calcium 9.5 Total Bilirubin 0.4 0.4 Direct Bilirubin 0.2 AST 299 H 132 H ALT 581 H 409 H Alkaline Phosphatase 135 H 135 H Total Protein 6.5 6.9 Albumin 3.8 4.0 IgA 191 Assessment and Plan (1) Transaminitis: Status: Acute Plan d3 73yo F with OA, varicoase veins multiple ED visits recently for bilateral leg pain, toe numbness + chest pain with negative workup returned with dizziness, weakness, N/V; found to have elevated LFTs of unknown cause transaminasemia - ?medication effect [NSAID or tramadol?] GI consulted and recommends HIDA given GB sludge. APAP level <3 and pt denies heavy APAP use; hepatitis serologies negative. Advise lowfat diet. musculoskeletal pain - no further workup; normal troponin + EKG. bilateral leg pain + varicose veins + toe numbness - outpt f/u with Orthopedics + Vasc Surgery; noted to have severe R knee OA VTE ppx - LMWH dispo - PT eval done, recommend home with [facility] In my clinical judgment, the patient requires continued inpatient hospitalization for the following reasons: LFT monitoring Total time managing care of this patient today: 35 minutes. Quality Stroke Does the patient have a stroke diagnosis?: No VTE Prior VTE?: No VTE Risk Level:: Medical - moderate - high VTE Device Contraindication: Treatment Not Indicated VTE Drug Contraindication: N/A - Med Ordered
--- NOTE | 2023-11-19 10:29 | MHC.CM.PN ---
Per MD rounds patient medically cleared for dc home w/ PT services through [facility]. Patient's friend will provide transport home. RN aware.
[2023-11-20 00:03] LABS: Transglutaminase IgA <1.0 U/mL
[2023-11-24 04:17] LABS: Smooth Muscle Antibody <20 U (<20)
[2023-11-24 15:23] LABS: Mitochondrial Antibodies NEGATIVE (NEGATIVE)
[2023-11-27 12:19] LABS: Anti Nuclear Antibody Screen NEGATIVE (NEGATIVE)
== END 2023-11-19 10:42 | disposition home health service (06) ==
LOC: HO.ED 15:55 → HO.EDOVER 17:14 → HO.S3 11-17 08:34
PROVIDERS: Internal Medicine Gastroenterology; Admitting Provider Hospitalist; Emergency Provider Emergency Medicine; PCP Internal Medicine; Visit Provider Family Medicine
DX: M17.0 Bilateral primary osteoarthritis of knee (principal); R74.01 Elevation of levels of liver transaminase levels; M25.561 Pain in right knee; R10.11 Right upper quadrant pain; R07.9 Chest pain, unspecified; R79.89 Other specified abnormal findings of blood chemistry; R11.2 Nausea with vomiting, unspecified; I83.93 Asymptomatic varicose veins of bilateral lower extremities; R20.2 Paresthesia of skin; Z96.652 Presence of left artificial knee joint; Z96.641 Presence of right artificial hip joint
CPT/HCPCS: 36415; 73560; 74176; 76705; 78227; 80048; 80053; 80076; 80143; 81003; 82550; 82784; 82977; 83690; 84484; 85025; 85027; 85610; 86015; 86038; 86364; 86381; 86704; 86706; 86709; 86803; 87340; 96372; 97116; 97161; 99221; 99285; A9537; J1650; J2805

== ENCOUNTER → 2023-11-16 17:07 | Outpatient (BNV) | payer MEDICARE, SELFPAY | PROVIDERS: Admitting Provider Hospitalist; Emergency Provider Emergency Medicine; PCP Internal Medicine; Visit Provider Internal Medicine Gastroenterology | DX: R79.89 Other specified abnormal findings of blood chemistry (principal) | CPT/HCPCS: 99222 ==

== ENCOUNTER → 2023-11-16 17:07 | Outpatient (BNV) | payer MEDICARE, SELFPAY | PROVIDERS: Admitting Provider Hospitalist; Emergency Provider Emergency Medicine; PCP Internal Medicine; Visit Provider Hospitalist | DX: R74.01 Elevation of levels of liver transaminase levels (principal) | CPT/HCPCS: 99222; 99232; 99239; 99499; G0180 ==

== ENCOUNTER 2024-02-28 01:22 | Emergency (ER) | payer MEDICARE, SELFPAY ==
--- NOTE | ~2024-02-28 | CT_ITS ---
EXAMINATION: CT ABDOMEN AND PELVIS WITHOUT CONTRAST CLINICAL INFORMATION: Rectal bleeding. Question diverticulitis. COMPARISON: CT abdomen and pelvis 11/16/2023. TECHNIQUE: Multidetector volumetric imaging was performed from the superior aspect of the liver through the pubic symphysis. Sagittal and coronal reformatted images were obtained on the technologist's workstation. This CT examination was performed using dose optimization techniques as appropriate, variously including the following: *Automated exposure control *Adjustment of mA and/or kV according to patient size (this includes techniques or standardized protocols for targeted exams where dose is matched to indication/reason for exam; i.e. extremities or head) *Use of iterative reconstruction technique DLP: 600 mGy-cm FINDINGS: LUNG BASES: The visualized lung bases are unremarkable. LIVER, GALLBLADDER, AND BILIARY TREE: The liver is normal in size, shape, and attenuation. No focal hepatic lesion or biliary ductal dilatation is present. The gallbladder is unremarkable with no evidence of radiopaque gallstones, gallbladder wall thickening, or obvious pericholecystic inflammatory changes. PANCREAS: Unremarkable. SPLEEN: Unremarkable. ADRENAL GLANDS: Unremarkable. KIDNEYS AND URETERS: The kidneys are normal in size, shape, and attenuation. No hydronephrosis, hydroureter, or calculi seen. No perinephric stranding. BLADDER: Unremarkable. GASTROINTESTINAL TRACT: Mild diverticulosis of the sigmoid colon is present. A densely calcified 2 cm focus is present within the sigmoid mesentery unchanged compared with 11/16/2023. This finding may represent the chronic sequela of prior appendicitis epiploica. No intestinal dilatation or mural thickening noted. No inflammatory changes of the sigmoid mesentery or small bowel mesentery visualized. Normal appearance of the appendix. No free intraperitoneal fluid or gas collections. Normal appearance of the stomach and duodenum. ABDOMINAL WALL: No significant hernia is appreciated. LYMPH NODES: Normal. VASCULAR: Mild scattered calcific atherosclerosis PELVIC VISCERA: Uterus is not visualized. No adnexal lesions. OSSEOUS STRUCTURES: A total right hip arthroplasty is present and gives rise to scattering artifact partially obscuring visualization of adjacent structures. No vertebral body compression deformities noted. Multilevel intervertebral disc space narrowing and vacuum phenomena. CT/CT abdomen pelvis wo IV con IMPRESSION: No acute abnormalities identified. Mild sigmoid diverticulosis. No evidence of acute diverticulitis. Status post total right hip arthroplasty. Multilevel chronic spondylosis of the lumbar spine. Electronically signed by: Dariel Sullivan MD 02/28/2024 03:29 AM EDT RP
[2024-02-28 01:49] VITALS: BP 135/64; PULSE 64; RESP 15; TEMP 36.6; O2SAT 97; BMI 31.4
--- NOTE | 2024-02-28 01:58 | ED.GENADULT ---
HPI - General Adult General Chief complaint: General Medical Stated complaint: BRIGHT RED BLOOD IN STOOL Time Seen by Provider: 02/28/24 01:57 Source: patient Limitations: no limitations History of Present Illness ED Provider: gracie HOFFMAN narrative: Patient complaining of blood streaks stool just prior to arrival with normal color of the stool feel cramping in the lower abdomen no history of diverticulitis no fever no chills Related Data Home Medications ?Medication ?Instructions ?Recorded ?Confirmed albuterol sulfate 90 mcg/actuation 2 puff inhalation Q6H PRN 11/16/23 11/16/23 aerosol inhaler Shortness Of Breath Or Wheezing calcium carbonate 600 mg-vitamin 1 tab PO DAILY 11/16/23 11/16/23 D3 5 mcg (200 unit) tablet capsaicin 0.025 % topical cream 1 appl topical DAILY PRN Pain 11/16/23 11/16/23 dextran 70-hypromellose (PF) 0.1 1 drp ophthalmic (eye) Q2H PRN Dry 11/16/23 11/16/23 %-0.3 % eye drops in a dropperette Eyes (Artificial Tears (PF)) estradiol 0.01% (0.1 mg/gram) 1 g vaginal 2XW PRN menopause 11/16/23 11/16/23 vaginal cream symptoms ibuprofen 800 mg tablet 800 mg PO Q8H PRN pain 11/16/23 11/16/23 loratadine 10 mg tablet (Claritin) 10 mg PO DAILY 11/16/23 11/16/23 multivitamin 1 tab PO DAILY 11/16/23 11/16/23 omega 1-wup-vxu-fish oil 300 1 cap PO DAILY 11/16/23 11/16/23 mg-1,000 mg capsule,delayed release (Fish Oil) vitamin E 268 mg (400 unit) capsule 268 mg PO DAILY 11/16/23 11/16/23 Previous Rx's ?Medication ?Instructions ?Recorded hydrocortisone acetate 25 mg 25 mg MI BID #12 ea 02/28/24 rectal suppository (Anusol-HC) Allergies Allergy/AdvReac Type Severity Reaction Status Date / Time cats Allergy Unknown Unknown Uncoded 02/28/24 01:53 Review of Systems Review of Systems: Yes all other systems are reviewed and are negative PMFSH Past Medical History Medical History Depression Osteoarthritis Social History Social History Patient Tobacco Use Status: Never used Tobacco Smoked in Last 30 Days: No Use of substances other than those prescribed or required for medical reasons: No Advance Directives: No Advance Directives Information Provided: Yes Do you have a plan to hurt others: No Plan service: No Physical Exam ED Vital Signs: Vital Signs - 24 hr 02/28/24 01:49 02/28/24 02:00 02/28/24 04:00 Temperature 97.9 F 98.3 F 97.9 F Pulse Rate 64 63 63 Respiratory Rate 15 16 16 Blood Pressure 135/64 126/65 143/70 H Pulse Oximetry 97 96 95 Oxygen Delivery Method Room Air Room Air Room Air 02/28/24 06:27 Temperature 97.9 F Pulse Rate 63 Respiratory Rate 16 Blood Pressure 143/70 H Pulse Oximetry 95 Oxygen Delivery Method Room Air BMI result Body Mass Index 31.4 Appearance: Alert. Oriented X3. No acute distress. Eyes: No pallor or ENT: Pharynx normal. Oral Mucosa moist Neck: Normal inspection. Neck supple. CVS: Normal heart rate and rhythm. Pulses normal. Respiratory: No respiratory distress. Equal air entry bilateral, no wheezing/rales/rhonchi Abdomen: Soft and mild suprapubic discomfort Bowel sounds are present, no mass palpable, no CVA tenderness rectum: No hemorrhoids palpable brown stool Skin: Skin warm and dry. Normal skin color. Normal skin turgor. Extremities: No lower extremity edema. No calf tenderness Neuro: Oriented X 3. No motor deficit. No sensory deficit.No cerebellar signs , cranial nerves II-XII intact Medical Decision Making Medical Decision Making [facility] Narrative: Patient with minor rectal bleed from hemorrhoids CT scan of the abdomen is negative H&H stable vitals stable discharge patient advised to follow up as outlined Differential Diagnosis Differential Diagnoses: The differential diagnosis associated with the presentation includes Hemorrhoids slight diverticulitis Lab Data [facility] Lab Attestation statement: I reviewed the patient's lab results. 02/28/24 04:04 02/28/24 02:39 Labs: Lab Results 02/28/24 02/28/24 Range/Units 02:39 04:04 WBC 6.8 (4.8-10.8) X10*3/uL RBC 3.71 L (4.20-5.50) X10*6/uL Hgb 12.3 (12.0-16.0) g/dl Hct 35.9 L (37.0-47.0) % MCV 96.8 (80.0-98.0) fL MCH 33.2 H (27.0-33.0) pg MCHC 34.3 (31.0-35.0) g/dl RDW 12.8 (11.0-16.0) % Plt Count 266 (160-400) X10*3/uL MPV 10.2 (9.4-12.3) fL Immature Gran % (Auto) 0.3 (0.0-0.4) % Neut % (Auto) 60.9 (45-73) % Lymph % (Auto) 27.7 (20-40) % [place] % (Auto) 7.7 (2-11) % Eos % (Auto) 2.8 (0-4) % Baso % (Auto) 0.6 (0-2) % Lymph # (Auto) 1.9 (1.2-4.9) X10*3/uL [place] # (Auto) 0.5 (0.1-1.2) X10*3/uL Eos # (Auto) 0.2 (0.0-0.4) X10*3/uL Baso # (Auto) 0.0 (0.0-0.2) X10*3/uL Abs Immat Gran (auto) 0.02 (0.00-0.03) X10*3/uL Absolute Neuts (auto) 4.1 (2.0-8.3) x10*3/uL Absolute Nucleated RBC 0.000 (0.0-0.012) X10*3/uL Nucleated RBC % (auto) 0.0 (0.0-0.2) /100WBC Sodium 141 (135-145) mmol/L Potassium 4.4 (3.3-5.1) mmol/L Chloride 107 (96-108) mmol/L Carbon Dioxide 25 (22-29) mmol/L Anion Gap 13 (12-20) BUN 20 H (9-16) mg/dL Creatinine 0.68 (0.5-1.4) mg/dL Estim Creat Clear Calc 77.3 Estimated GFR > 60 Random Glucose 98 (60-115) mg/dL Calcium 10.1 D (8.4-10.2) mg/dL Total Bilirubin 0.3 (0.0-1.0) mg/dL AST 21 (5-31) U/L ALT 15 (0-31) U/L Alkaline Phosphatase 61 (39-117) U/L Total Protein 7.1 (6.5-8.0) g/dL Albumin 4.2 (3.5-5.0) g/dL Stool Occult Blood POSITIVE (NEGATIVE) Independent Interpretation I performed an independent interpretation of an: CT Scan Radiology Impression Discussion of test interpretation with radiology: I have reviewed the radiologist's reading. Radiologist Impression: CT/CT abdomen pelvis wo IV con IMPRESSION: No acute abnormalities identified. Mild sigmoid diverticulosis. No evidence of acute diverticulitis. Status post total right hip arthroplasty. Multilevel chronic spondylosis of the lumbar spine. Electronically signed by: Dariel Sullivan MD 02/28/2024 03:29 AM EDT Discharge Plan Discharge Clinical Impression: Bright red rectal bleeding, Bleeding hemorrhoids Patient Disposition: Home, Self-Care Instructions: Hemorrhoids (DC), Rectal Bleeding (ED) Additional Instructions: Avoid constipation/straining Suppository twice a day as prescribed Follow with director product development Prescriptions: New hydrocortisone acetate [Anusol-HC] 25 mg suppository 25 mg MI BID Qty: 12 0RF No Action ibuprofen 800 mg tablet 800 mg PO Q8H PRN (Reason: pain) multivitamin Tablet 1 tab PO DAILY calcium carbonate-vitamin D3 600 mg-5 mcg (200 unit) Tablet 1 tab PO DAILY capsaicin 0.025 % Cream 1 appl TOPICAL DAILY PRN (Reason: Pain) Rx Instructions: do not wash area for at least 30 min after application estradiol 0.01 % (0.1 mg/gram) Cream 1 g VAGINAL 2XW PRN (Reason: menopause symptoms) albuterol sulfate 90 mcg/actuation Hfa Aerosol Inhaler 2 puff INHALATION Q6H PRN (Reason: Shortness Of Breath Or Wheezing) vitamin E 268 mg (400 unit) Capsule 268 mg PO DAILY loratadine [Claritin] 10 mg Tablet 10 mg PO DAILY Artificial Tears (PF) 0.1-0.3 % Dropperette 1 drp OPHTHALMIC (EYE) Q2H PRN (Reason: Dry Eyes) omega 4-iqg-vbv-fish oil [Fish Oil] 300-1,000 mg Capsule,Delayed Release(Dr/Ec) 1 cap PO DAILY Interventions: ED Discharge Assessment Last Done: 02/28/24 06:27 Discharge Date/Time: 02/28/24 06:27 Print Language: South Korean
[2024-02-28 02:00] VITALS: BP 126/65; PULSE 63; RESP 16; TEMP 36.8; O2SAT 96
[2024-02-28 02:51] LABS: OBS Int Ctl Valid YES; OBS1 POSITIVE (NEGATIVE)
[2024-02-28 03:07] LABS: Alanine Aminotransferase 15 U/L (0-31); Albumin Level 4.2 g/dL (3.5-5.0); Alkaline Phosphatase 61 U/L (39-117); Anion Gap 13 (12-20); Aspartate Amino Transferase 21 U/L (5-31); Bilirubin Total 0.3 mg/dL (0.0-1.0); Blood Urea Nitrogen 20 mg/dL (9-16); Calcium 10.1 mg/dL (8.4-10.2); Carbon Dioxide 25 mmol/L (22-29); Chloride 107 mmol/L (96-108); Creatinine Clr Calc Pharmacy 77.3; Estimated Glomerular Filt Rate > 60; Glucose Random 98 mg/dL (60-115); Potassium 4.4 mmol/L (3.3-5.1); Sodium 141 mmol/L (135-145); Total Protein 7.1 g/dL (6.5-8.0)
[2024-02-28 04:00] VITALS: BP 143/70; PULSE 63; RESP 16; TEMP 36.6; O2SAT 95
[2024-02-28 04:09] LABS: Basophils Percent Auto 0.6 % (0-2); Eosinophils Absolute Auto 0.2 X10*3/uL (0.0-0.4); Eosinophils Percent Auto 2.8 % (0-4); Hematocrit 35.9 % (37.0-47.0); Hemoglobin 12.3 g/dl (12.0-16.0); Imm Gran Abs Auto 0.02 X10*3/uL (0.00-0.03); Imm Gran Pct Auto 0.3 % (0.0-0.4); Lymphocytes Absolute Auto 1.9 X10*3/uL (1.2-4.9); Lymphocytes Percent Auto 27.7 % (20-40); MANUAL DIFF FLAG NO; Mean Corpuscular HGB Conc 34.3 g/dl (31.0-35.0); Mean Corpuscular Hemoglobin 33.2 pg (27.0-33.0); Mean Corpuscular Volume 96.8 fL (80.0-98.0); Mean Platelet Volume 10.2 fL (9.4-12.3); Monocytes Absolute Auto 0.5 X10*3/uL (0.1-1.2); Monocytes Percent Auto 7.7 % (2-11); Neutrophils Absolute Auto 4.1 x10*3/uL (2.0-8.3); Neutrophils Percent Auto 60.9 % (45-73); Platelet Count 266 X10*3/uL (160-400); Red Blood Count 3.71 X10*6/uL (4.20-5.50); Red Cell Distribution Width 12.8 % (11.0-16.0); White Blood Count 6.8 X10*3/uL (4.8-10.8)
[2024-02-28 06:27] VITALS: BP 143/70; PULSE 63; RESP 16; TEMP 36.6; O2SAT 95
== END 2024-02-28 06:27 | disposition home or self-care (01) ==
PROVIDERS: Emergency Provider Internal Medicine
DX: K64.9 Unspecified hemorrhoids (principal); K62.5 Hemorrhage of anus and rectum
CPT/HCPCS: 36415; 74176; 80053; 82272; 85025; 99284

== ENCOUNTER 2024-03-31 15:06 | Outpatient (REF) | payer MEDICARE, SELFPAY ==
--- NOTE | ~2024-03-31 | MM_ITS ---
EXAMINATION: MM SCREENING DIGITAL BREAST TOMOSYNTHESIS, BILATERAL CLINICAL INFORMATION: Screening. Asymptomatic. COMPARISON: Mammography: Comparison is made with available priors TECHNIQUE: Digital breast mammography with tomosynthesis is performed in both the craniocaudal and mediolateral oblique views along with computer-aided detection (CAD). FINDINGS: The breasts are heterogeneously dense, which may obscure small masses (ACR BI-RADS breast composition Category c). Bilateral secretory calcifications. There are no significant masses, abnormal calcifications, or other abnormalities. MM/MM tomosynthesis screening BI IMPRESSION: No mammographic evidence of malignancy. ASSESSMENT: BI-RADS BI-RADS 2 - Benign Findings RECOMMENDATION: Routine annual mammography screening. 1 year F/U This examination should not preclude the clinical evaluation of a suspicious palpable abnormality. This patient's information was entered into a reminder system with a target due date for their next mammogram. Electronically signed by: Beatrice Gomez DO 04/09/2024 08:45 AM D[facility]
== END 2024-03-31 15:07 | disposition home or self-care (01) ==
LOC: HO.MAMMO 15:06
PROVIDERS: PCP Internal Medicine; Visit Provider Internal Medicine
DX: Z12.31 Encounter for screening mammogram for malignant neoplasm of breast (principal)
CPT/HCPCS: 77063; 77067

== ENCOUNTER → 2024-03-31 15:15 | Outpatient (BNV) | payer MEDICARE, SELFPAY | PROVIDERS: PCP Internal Medicine; Visit Provider Internal Medicine | DX: Z12.31 Encounter for screening mammogram for malignant neoplasm of breast (principal) | CPT/HCPCS: 77063; 77067 ==